=== PATIENT | female | born 1960 | race Caucasian/White ===

== ENCOUNTER → 2022-06-25 07:52 | Outpatient (BNVA) | payer BC, SELFPAY | PROVIDERS: Visit Provider Student in an Organized Health Care Education/Training Program | DX: Z13.89 Encounter for screening for other disorder (principal) ==

== ENCOUNTER 2022-07-24 09:17 | Outpatient (REF) | payer BC, SELFPAY ==
--- NOTE | ~2022-07-24 | XR_ITS ---
EXAMINATION: XR CERVICAL SPINE XR THORACIC SPINE XR LUMBAR SPINE XR SACROILIAC JOINTS CLINICAL INFORMATION: Ankylosing spondylitis. COMPARISON: None TECHNIQUE: 5 views of the cervical spine. AP and lateral views of the thoracic spine. 5 views of the lumbar spine. 3 views of the sacroiliac joints. FINDINGS: Cervical spine: There is osseous fusion of the facet joints spanning C2-C6 with severe facet arthrosis and slight anterolisthesis at C6-C7. Slight anterolisthesis of C4-C5. Partial fusion of the C5-C6 vertebral bodies posteriorly. No acute osseous abnormality. No prevertebral soft tissue swelling. No significant neural foraminal narrowing on the oblique views. Thoracic spine: Mild to moderate multilevel degenerative disc disease with mild dextroconvex scoliosis. No definite osseous bridging. No acute abnormality demonstrated. Lumbar spine: Normal alignment and lumbar lordosis with no fracture. Mild narrowing of the L5-S1 disc space. Intervertebral disc heights are otherwise preserved. There is facet arthrosis at L4-L5 and L5-S1, and on the right at L3-L4. No definite osseous bridging. Sacroiliac joints: Mild sclerosis along the sacroiliac joints with no definite erosions or ankylosis. CT may be able to detect spicules of bridging bone not apparent radiographically. XR/XR thoracic spine 3V IMPRESSION: Cervical Spine: Osseous fusion of the facet joints from C2 through C6 with slight anterolisthesis at C4-C5 and C6-C7. Partial fusion of the C5-C6 vertebral bodies posteriorly. No acute osseous abnormality. Thoracic Spine: Mild to moderate multilevel degenerative disc disease with no definite osseous bridging. Lumbar Spine: Mild L5-S1 disc space narrowing and lower lumbar facet arthrosis. No definite osseous bridging. Sacroiliac Joints: Mild sclerosis along the sacroiliac joints without definite erosions or ankylosis.
--- NOTE | ~2022-07-24 | XR_ITS ---
EXAMINATION: XR HAND/WRIST, BILATERAL XR ANKLE, BILATERAL XR FOOT, BILATERAL CLINICAL INFORMATION: Ankylosing spondylitis. COMPARISON: None. TECHNIQUE: 4 views of each hand/wrist. 3 views of each ankle. 3 views of each foot. FINDINGS: Right Hand/Wrist: No periarticular osteopenia or erosions. No suspicious soft tissue calcifications. Mild triscaphoid osteoarthritis. No acute osseous abnormality. Left Hand/Wrist: No periarticular osteopenia or erosions. No suspicious soft tissue calcifications. Ulnar-positive variance with a degenerative cyst of the ulnar styloid which may be due to chronic abutment. Moderate osteoarthritis of the triscaphoid articulation. No acute osseous abnormality. Right Ankle and Foot: The ankle mortise is preserved. Mild talocrural osteoarthritis. There is a large heel spur and a small posterior calcaneal enthesophyte. Mild joint space narrowing and degenerative sclerosis of the midfoot, particularly the calcaneocuboid joint as well as the junction of the lateral cuneiform and cuboid. Probable erosion at the medial aspect of the 2nd distal interphalangeal joint and fusion of the 3rd DIP joint. Left Ankle and Foot: The ankle mortise is preserved. Mild talocrural osteoarthritis. There is a small heel spur and a small posterior calcaneal enthesophyte. Narrowing of the talonavicular joint. Moderate arthrosis of the 1st interphalangeal joint with probable chronic erosion at the lateral aspect of the proximal phalanx. Possible chronic erosion at the lateral aspect of the 5th PIP joint. No acute abnormality. XR/XR ankle RT min 3V IMPRESSION: Degenerative findings of the hands/wrists as described without evidence of an active inflammatory arthropathy. Possible active erosion of the right 2nd DIP joint and fusion of the 3rd DIP joint. Possible chronic erosions of the left 1st interphalangeal joint and 5th PIP joint. No other evidence to suggest an active inflammatory arthropathy. Degenerative findings as described.
--- NOTE | ~2022-07-24 | XR_ITS ---
EXAMINATION: XR HAND/WRIST, BILATERAL XR ANKLE, BILATERAL XR FOOT, BILATERAL CLINICAL INFORMATION: Ankylosing spondylitis. COMPARISON: None. TECHNIQUE: 4 views of each hand/wrist. 3 views of each ankle. 3 views of each foot. FINDINGS: Right Hand/Wrist: No periarticular osteopenia or erosions. No suspicious soft tissue calcifications. Mild triscaphoid osteoarthritis. No acute osseous abnormality. Left Hand/Wrist: No periarticular osteopenia or erosions. No suspicious soft tissue calcifications. Ulnar-positive variance with a degenerative cyst of the ulnar styloid which may be due to chronic abutment. Moderate osteoarthritis of the triscaphoid articulation. No acute osseous abnormality. Right Ankle and Foot: The ankle mortise is preserved. Mild talocrural osteoarthritis. There is a large heel spur and a small posterior calcaneal enthesophyte. Mild joint space narrowing and degenerative sclerosis of the midfoot, particularly the calcaneocuboid joint as well as the junction of the lateral cuneiform and cuboid. Probable erosion at the medial aspect of the 2nd distal interphalangeal joint and fusion of the 3rd DIP joint. Left Ankle and Foot: The ankle mortise is preserved. Mild talocrural osteoarthritis. There is a small heel spur and a small posterior calcaneal enthesophyte. Narrowing of the talonavicular joint. Moderate arthrosis of the 1st interphalangeal joint with probable chronic erosion at the lateral aspect of the proximal phalanx. Possible chronic erosion at the lateral aspect of the 5th PIP joint. No acute abnormality. XR/XR ankle LT min 3V IMPRESSION: Degenerative findings of the hands/wrists as described without evidence of an active inflammatory arthropathy. Possible active erosion of the right 2nd DIP joint and fusion of the 3rd DIP joint. Possible chronic erosions of the left 1st interphalangeal joint and 5th PIP joint. No other evidence to suggest an active inflammatory arthropathy. Degenerative findings as described.
--- NOTE | ~2022-07-24 | XR_ITS ---
EXAMINATION: XR CERVICAL SPINE XR THORACIC SPINE XR LUMBAR SPINE XR SACROILIAC JOINTS CLINICAL INFORMATION: Ankylosing spondylitis. COMPARISON: None TECHNIQUE: 5 views of the cervical spine. AP and lateral views of the thoracic spine. 5 views of the lumbar spine. 3 views of the sacroiliac joints. FINDINGS: Cervical spine: There is osseous fusion of the facet joints spanning C2-C6 with severe facet arthrosis and slight anterolisthesis at C6-C7. Slight anterolisthesis of C4-C5. Partial fusion of the C5-C6 vertebral bodies posteriorly. No acute osseous abnormality. No prevertebral soft tissue swelling. No significant neural foraminal narrowing on the oblique views. Thoracic spine: Mild to moderate multilevel degenerative disc disease with mild dextroconvex scoliosis. No definite osseous bridging. No acute abnormality demonstrated. Lumbar spine: Normal alignment and lumbar lordosis with no fracture. Mild narrowing of the L5-S1 disc space. Intervertebral disc heights are otherwise preserved. There is facet arthrosis at L4-L5 and L5-S1, and on the right at L3-L4. No definite osseous bridging. Sacroiliac joints: Mild sclerosis along the sacroiliac joints with no definite erosions or ankylosis. CT may be able to detect spicules of bridging bone not apparent radiographically. XR/XR lumbar spine 4V min IMPRESSION: Cervical Spine: Osseous fusion of the facet joints from C2 through C6 with slight anterolisthesis at C4-C5 and C6-C7. Partial fusion of the C5-C6 vertebral bodies posteriorly. No acute osseous abnormality. Thoracic Spine: Mild to moderate multilevel degenerative disc disease with no definite osseous bridging. Lumbar Spine: Mild L5-S1 disc space narrowing and lower lumbar facet arthrosis. No definite osseous bridging. Sacroiliac Joints: Mild sclerosis along the sacroiliac joints without definite erosions or ankylosis.
--- NOTE | ~2022-07-24 | XR_ITS ---
EXAMINATION: XR CERVICAL SPINE XR THORACIC SPINE XR LUMBAR SPINE XR SACROILIAC JOINTS CLINICAL INFORMATION: Ankylosing spondylitis. COMPARISON: None TECHNIQUE: 5 views of the cervical spine. AP and lateral views of the thoracic spine. 5 views of the lumbar spine. 3 views of the sacroiliac joints. FINDINGS: Cervical spine: There is osseous fusion of the facet joints spanning C2-C6 with severe facet arthrosis and slight anterolisthesis at C6-C7. Slight anterolisthesis of C4-C5. Partial fusion of the C5-C6 vertebral bodies posteriorly. No acute osseous abnormality. No prevertebral soft tissue swelling. No significant neural foraminal narrowing on the oblique views. Thoracic spine: Mild to moderate multilevel degenerative disc disease with mild dextroconvex scoliosis. No definite osseous bridging. No acute abnormality demonstrated. Lumbar spine: Normal alignment and lumbar lordosis with no fracture. Mild narrowing of the L5-S1 disc space. Intervertebral disc heights are otherwise preserved. There is facet arthrosis at L4-L5 and L5-S1, and on the right at L3-L4. No definite osseous bridging. Sacroiliac joints: Mild sclerosis along the sacroiliac joints with no definite erosions or ankylosis. CT may be able to detect spicules of bridging bone not apparent radiographically. XR/XR sacroiliac joint min 3V IMPRESSION: Cervical Spine: Osseous fusion of the facet joints from C2 through C6 with slight anterolisthesis at C4-C5 and C6-C7. Partial fusion of the C5-C6 vertebral bodies posteriorly. No acute osseous abnormality. Thoracic Spine: Mild to moderate multilevel degenerative disc disease with no definite osseous bridging. Lumbar Spine: Mild L5-S1 disc space narrowing and lower lumbar facet arthrosis. No definite osseous bridging. Sacroiliac Joints: Mild sclerosis along the sacroiliac joints without definite erosions or ankylosis.
--- NOTE | ~2022-07-24 | XR_ITS ---
EXAMINATION: XR CERVICAL SPINE XR THORACIC SPINE XR LUMBAR SPINE XR SACROILIAC JOINTS CLINICAL INFORMATION: Ankylosing spondylitis. COMPARISON: None TECHNIQUE: 5 views of the cervical spine. AP and lateral views of the thoracic spine. 5 views of the lumbar spine. 3 views of the sacroiliac joints. FINDINGS: Cervical spine: There is osseous fusion of the facet joints spanning C2-C6 with severe facet arthrosis and slight anterolisthesis at C6-C7. Slight anterolisthesis of C4-C5. Partial fusion of the C5-C6 vertebral bodies posteriorly. No acute osseous abnormality. No prevertebral soft tissue swelling. No significant neural foraminal narrowing on the oblique views. Thoracic spine: Mild to moderate multilevel degenerative disc disease with mild dextroconvex scoliosis. No definite osseous bridging. No acute abnormality demonstrated. Lumbar spine: Normal alignment and lumbar lordosis with no fracture. Mild narrowing of the L5-S1 disc space. Intervertebral disc heights are otherwise preserved. There is facet arthrosis at L4-L5 and L5-S1, and on the right at L3-L4. No definite osseous bridging. Sacroiliac joints: Mild sclerosis along the sacroiliac joints with no definite erosions or ankylosis. CT may be able to detect spicules of bridging bone not apparent radiographically. XR/XR cervical spine min 6V IMPRESSION: Cervical Spine: Osseous fusion of the facet joints from C2 through C6 with slight anterolisthesis at C4-C5 and C6-C7. Partial fusion of the C5-C6 vertebral bodies posteriorly. No acute osseous abnormality. Thoracic Spine: Mild to moderate multilevel degenerative disc disease with no definite osseous bridging. Lumbar Spine: Mild L5-S1 disc space narrowing and lower lumbar facet arthrosis. No definite osseous bridging. Sacroiliac Joints: Mild sclerosis along the sacroiliac joints without definite erosions or ankylosis.
--- NOTE | ~2022-07-24 | XR_ITS ---
EXAMINATION: XR HAND/WRIST, BILATERAL XR ANKLE, BILATERAL XR FOOT, BILATERAL CLINICAL INFORMATION: Ankylosing spondylitis. COMPARISON: None. TECHNIQUE: 4 views of each hand/wrist. 3 views of each ankle. 3 views of each foot. FINDINGS: Right Hand/Wrist: No periarticular osteopenia or erosions. No suspicious soft tissue calcifications. Mild triscaphoid osteoarthritis. No acute osseous abnormality. Left Hand/Wrist: No periarticular osteopenia or erosions. No suspicious soft tissue calcifications. Ulnar-positive variance with a degenerative cyst of the ulnar styloid which may be due to chronic abutment. Moderate osteoarthritis of the triscaphoid articulation. No acute osseous abnormality. Right Ankle and Foot: The ankle mortise is preserved. Mild talocrural osteoarthritis. There is a large heel spur and a small posterior calcaneal enthesophyte. Mild joint space narrowing and degenerative sclerosis of the midfoot, particularly the calcaneocuboid joint as well as the junction of the lateral cuneiform and cuboid. Probable erosion at the medial aspect of the 2nd distal interphalangeal joint and fusion of the 3rd DIP joint. Left Ankle and Foot: The ankle mortise is preserved. Mild talocrural osteoarthritis. There is a small heel spur and a small posterior calcaneal enthesophyte. Narrowing of the talonavicular joint. Moderate arthrosis of the 1st interphalangeal joint with probable chronic erosion at the lateral aspect of the proximal phalanx. Possible chronic erosion at the lateral aspect of the 5th PIP joint. No acute abnormality. XR/XR hand wrist LT IMPRESSION: Degenerative findings of the hands/wrists as described without evidence of an active inflammatory arthropathy. Possible active erosion of the right 2nd DIP joint and fusion of the 3rd DIP joint. Possible chronic erosions of the left 1st interphalangeal joint and 5th PIP joint. No other evidence to suggest an active inflammatory arthropathy. Degenerative findings as described.
--- NOTE | ~2022-07-24 | XR_ITS ---
EXAMINATION: XR HAND/WRIST, BILATERAL XR ANKLE, BILATERAL XR FOOT, BILATERAL CLINICAL INFORMATION: Ankylosing spondylitis. COMPARISON: None. TECHNIQUE: 4 views of each hand/wrist. 3 views of each ankle. 3 views of each foot. FINDINGS: Right Hand/Wrist: No periarticular osteopenia or erosions. No suspicious soft tissue calcifications. Mild triscaphoid osteoarthritis. No acute osseous abnormality. Left Hand/Wrist: No periarticular osteopenia or erosions. No suspicious soft tissue calcifications. Ulnar-positive variance with a degenerative cyst of the ulnar styloid which may be due to chronic abutment. Moderate osteoarthritis of the triscaphoid articulation. No acute osseous abnormality. Right Ankle and Foot: The ankle mortise is preserved. Mild talocrural osteoarthritis. There is a large heel spur and a small posterior calcaneal enthesophyte. Mild joint space narrowing and degenerative sclerosis of the midfoot, particularly the calcaneocuboid joint as well as the junction of the lateral cuneiform and cuboid. Probable erosion at the medial aspect of the 2nd distal interphalangeal joint and fusion of the 3rd DIP joint. Left Ankle and Foot: The ankle mortise is preserved. Mild talocrural osteoarthritis. There is a small heel spur and a small posterior calcaneal enthesophyte. Narrowing of the talonavicular joint. Moderate arthrosis of the 1st interphalangeal joint with probable chronic erosion at the lateral aspect of the proximal phalanx. Possible chronic erosion at the lateral aspect of the 5th PIP joint. No acute abnormality. XR/XR hand wrist RT IMPRESSION: Degenerative findings of the hands/wrists as described without evidence of an active inflammatory arthropathy. Possible active erosion of the right 2nd DIP joint and fusion of the 3rd DIP joint. Possible chronic erosions of the left 1st interphalangeal joint and 5th PIP joint. No other evidence to suggest an active inflammatory arthropathy. Degenerative findings as described.
[2022-07-24 09:43] LABS: MANUAL DIFF FLAG NO
[2022-07-24 10:37] LABS: Basophils Absolute Auto 0.1 X10*3/uL (0.0-0.2); Basophils Percent Auto 0.7 % (0-2); Eosinophils Percent Auto 0.4 % (0-4); Hematocrit 38.8 % (37.0-47.0); Hemoglobin 12.7 g/dl (12.0-16.0); Imm Gran Abs Auto 0.02 X10*3/uL (0.00-0.03); Imm Gran Pct Auto 0.3 % (0.0-0.4); Lymphocytes Absolute Auto 1.3 X10*3/uL (1.2-4.9); Lymphocytes Percent Auto 17.7 % (20-40); Mean Corpuscular HGB Conc 32.7 g/dl (31.0-35.0); Mean Corpuscular Hemoglobin 28.9 pg (27.0-33.0); Mean Corpuscular Volume 88.4 fL (80.0-98.0); Mean Platelet Volume 9.1 fL (9.4-12.3); Monocytes Absolute Auto 0.4 X10*3/uL (0.1-1.2); Neutrophils Absolute Auto 5.5 x10*3/uL (2.0-8.3); Neutrophils Percent Auto 74.9 % (45-73); Platelet Count 463 X10*3/uL (160-400); Red Blood Count 4.39 X10*6/uL (4.20-5.50); White Blood Count 7.3 X10*3/uL (4.8-10.8)
[2022-07-24 11:13] LABS: Alanine Aminotransferase 12 U/L (0-31); Alkaline Phosphatase 57 U/L (39-117); Anion Gap 15 (12-20); Aspartate Amino Transferase 16 U/L (5-31); Bilirubin Total 0.4 mg/dL (0.0-1.0); Blood Urea Nitrogen 18 mg/dL (9-16); C Reactive Protein 3.29 mg/dL (< or = 0.50); Calcium 9.6 mg/dL (8.4-10.2); Carbon Dioxide 28 mmol/L (22-29); Chloride 103 mmol/L (96-108); Estimated Glomerular Filt Rate > 60; Glucose Random 87 mg/dL (60-115); Potassium 4.6 mmol/L (3.3-5.1); Rheumatoid Factor < 13.0 IU/mL (<15.0); Sodium 141 mmol/L (135-145); Total Protein 7.7 g/dL (6.5-8.0); Uric Acid 3.8 mg/dL (2.4-5.7)
[2022-07-24 11:21] LABS: Erythrocyte Sedimentation Rate 81 MM/HR (0-20)
[2022-07-26 04:26] LABS: HBc Num1 0.12 S/CO (0.00-0.79); HBsAGNum1 0.21 S/CO (0.00-0.99); Hepatitis A Antibody IgM 0.17 Index (0-0.79); Hepatitis B Core Antibody Nonreactive (Nonreactive); Hepatitis B Surface Antigen Negative (Negative); ~HepC Num1 0.14 S/CO (0.00-0.79); ~Hepatitis A Antibody IgM Nonreactive (Nonreactive); ~Hepatitis B Surface Antibody NONREACTIVE (Nonreactive); ~Hepatitis C Antibody Nonreactive (Nonreactive)
[2022-07-27 12:58] LABS: IgA 258 mg/dL (70-320); IgG 1730 mg/dL (600-1540); IgM 255 mg/dL (50-300)
[2022-07-27 14:23] LABS: Cyclic Citrullinated Peptide <16 UNITS
[2022-08-02 15:37] LABS: HLA B27 Positive (Negative)
== END 2022-07-24 09:18 | disposition home or self-care (01) ==
LOC: HO.LAB 09:17
PROVIDERS: Visit Provider Student in an Organized Health Care Education/Training Program
DX: Z11.59 Encounter for screening for other viral diseases (principal); M45.9 Ankylosing spondylitis of unspecified sites in spine; M25.571 Pain in right ankle and joints of right foot; M25.572 Pain in left ankle and joints of left foot
CPT/HCPCS: 36415; 72052; 72072; 72110; 72202; 73110; 73130; 73610; 73630; 80053; 82784; 84550; 85025; 85652; 86140; 86200; 86334; 86431; 86704; 86706; 86709; 86803; 86812; 87340

== ENCOUNTER 2022-08-27 07:23 | Outpatient (REF) | payer BC, SELFPAY ==
[2022-08-29 23:54] LABS: TS Negative Control Passed; TS Panel A 0; TS Panel B 0; TS Positive Control Passed; TSpotTB Negative (Negative)
== END 2022-08-27 07:24 | disposition home or self-care (01) ==
LOC: HO.LAB 07:23
PROVIDERS: Visit Provider Student in an Organized Health Care Education/Training Program
DX: Z11.7 Encounter for testing for latent tuberculosis infection (principal); M45.0 Ankylosing spondylitis of multiple sites in spine
CPT/HCPCS: 36415; 86481

== ENCOUNTER 2023-03-25 07:50 | Outpatient (AMB) | payer BC, SELFPAY ==
--- NOTE | 2023-03-25 08:00 | A.OFFVIS_ITS ---
Intake Vital Signs 03/25/23 08:02 Height 5 ft 7 in Weight 134 lb 0.657 oz BMI 21.0 BP 106/64 Blood Pressure Location Rt brachial Position Sitting Pulse 76 Pulse Source Pulse Oximeter Temp 97.9 F Temp Source Skin Pulse Oximetry (%) 97 Intake Visit Reasons: Intake Note: Pt presents today for follow up and lab result. Was started on Humira. 5 doses so far tolerating well.. no worse as far as joint pain. Toes are better Network Support Administrator Required: No Accompanied by: Self / Same As Patient Allergies clindamycin Allergy (Intermediate, Verified 03/25/23 08:06) Rash demeclocycline [From Declomycin] Allergy (Intermediate, Verified 03/25/23 08:06) RASH Medication List - Last Reconciled 03/25/23 by Kareem Blanchard MD adalimumab (Humira(CF) Pen) inject one - 40 mg/0.4 mL pen every 2 weeks subcut calcium-vitamin D3-vitamin K 650 mg-12.5 mcg-40 mcg (Viactiv) 1 tab PO BID HPI HPI Comments History of Present Illness Details 62-year-old female with HLA B27 positive ankylosing spondylitis returns for follow-up. she finally started the Humira through [employer]. Tolerating it well.She received 5 doses so far. Feeling much better overall. Her bilateral toe pain is resolved. Her neck stiffness is about the same. She no longer takes Aleve. Initial history: This is a 61-year-old female who is referred for evaluation of ankylosing spondylitis. Patient states that about 18 years ago she started having lower back pain and stiffness this was shortly followed by 3-4 episodes of iritis. Per patient the iritis would alternate between her right and left eye. She never had bilateral iritis. The iritis episodes would resolve with steroid eyedrops in about 2 weeks. She has not had any recurrent iritis for 18 years or so. For the past 18 years patient has taken Aleve 440 mg Twice daily. She states that her lower back pain has resolved however she has had slowly progressive neck stiffness for the last few years. She has neck pain with movement. Which she does not take the Aleve consistently she would have worsening pain and stiffness. Over the last few years patient has been having bilateral feet pain and stiffness worse on the right. The foot pain improves after walking. Patient is generally active she takes care of her daughter's children as her daughter has to go to work. She denies any history of psoriasis, no history of suggestive of IBD. No known family history of autoimmune disease. Patient was last evaluated by visitor information assistant in 2019. [facility] Medical History (Updated 03/25/23 @ 08:26 by Kareem Blanchard MD) Chest wall pain Chronic neck pain Osteopenia Iritis G6PD deficiency Polyarthritis ANNA positive Surgical History Hx of removal of cyst Family History Mother PMR (polymyalgia rheumatica) Father Arthritis Maternal Grandmother Arthritis Social History Household Members: Spouse Alcohol intake: never Patient Tobacco Use Status: Never used Tobacco Current occupational status: previously employed Current occupation: used to be a teacher's aid Review of Systems Const All systems reviewed & are unremarkable except as noted in HPI and below Musc Denies arthralgias Physical Exam Vital Signs: Last Vital Signs Temp 97.9 F 03/25/23 08:02 Pulse 76 03/25/23 08:02 BP 106/64 03/25/23 08:02 Pulse Ox 97 03/25/23 08:02 BMI result Body Mass Index 21.0 Const General: cooperative, healthy appearing, comfortable and no acute distress Nutritional Appearance: average body habitus Orientation/consciousness: patient oriented x3 Resp Effort & Inspection: normal respiratory effort and able to speak in complete sentences Cardio Rate: regular rate Rhythm: regular rhythm GI Inspection: No distended Palpation (GI): Soft to palpation and nontender Back/Spine/Pelvis Other: limited range of motion of her neck limited flexion, extension, left and right rotation and left and right lateral flexion Toribio test 10-14 cm Skin General skin exam: no rashes or lesions noted Neuro General: patient oriented x3 Extrem Other: Minimal osteoarthritic changes of both hands with no synovitis Normal nailfold capillaroscopy No nail pitting No MTP joint tenderness bilaterally Negative MTP squeeze test bilateral Deformities of her right foot toes No Achillis tendon swelling or tenderness no ankle swelling or tenderness Negative Alexys's test Negative straight leg raise test Results Reviewed Results Reviewed: Labs 10/2021 CMP unremarkable HbA1c 5.6% X-ray cervical spine 12/2018 Impression: ankylosis from C2-C6 at the posterior elements. Minor disc height loss at C5-C6. Trace scoliosis Labs 12/2018? G6PD 10.9 (8.8-13.4) SPEP showed polyclonal hypergammaglobulinemia CRP 13.4 (<4.0) CPK 47 C3 187 (81-157) C4 18 (12-39) ANNA 1-320 homogeneous SSA/SSB/Salas/CLINICAL EXERCISE PHYSIOLOGIST/dsDNA negative Feet x-rays from 06/2018 Impression:? Mild diffuse osteopenia with mild spurring in the midfoot and hindfoot.? No erosive arthropathy or subluxation.? Prominent calculi in [place] consistent with plantar fasciitis on the right with minor plantar calcaneal spurring on the left Bilateral hand x-rays from 06/2018? Impression:? No osteopenia, erosive changes, subluxation or significant degenerative changes DEXA 07/2018? Lumbar spine T-score -2.1 Left hip T-score-1.5? Femoral neck T-score -2.2 Assessment & Plan Assessment & Plan (1) Ankylosing spondylitis: Comment: + HLA b27 started in 2002 low back & neck stiffness, MTP involvement, iritis no recurrence of iritis since 2002 NSAIDs all through, DC 12/2022 when Humira was started Humira 01/2023 effective Code(s): M45.9 - Ankylosing spondylitis of unspecified sites in spine Qualifiers: Ankylosing spondylitis location: multiple sites in spine Qualified Code(s): M45.0 - Ankylosing spondylitis of multiple sites in spine Plan: This is a 62-year-old female with HLA B27 positive ankylosing spondylitis, who presents for follow-up. started on Humira 40 mg every other week 10 weeks ago with significant improvement. There is no MTP tenderness on exam. Patient completely discontinued NSAIDs. Check inflammatory markers today Infectious screening: hepatitis panel and T spot -20 23 labs before next visit in 4 months (2) High risk medication use: Code(s): Z79.899 - Other display trimmer (current) drug therapy Plan: Discussed risk of infection with Humira. Advised patient to hold the Humira as soon as she feels any signs of infection and contact us. (3) Immunization counseling: Code(s): Z71.85 - Encounter for immunization safety counseling Plan: discussed ACR vaccination guidelines for all those with autoimmune rheumatic disease on immune suppressants. Patient already received the flu shot for this year. Advised patient to get the new COVID booster. No need to hold Humira advised patient that respiratory infections including COVID are on the rise, to maintain social distancing and wear a mask when appropriate. Plan I spent 27 minutes reviewing patient's chart, evaluating patient, ordering diagnostic workup, counseling patient and documenting in the chart Orders: Orders C Reactive Protein Today M45.9 - Ankylosing spondylitis of unspecified sites in spine Erythrocyte Sedimentation Rate Today M45.9 - Ankylosing spondylitis of unspecified sites in spine Complete Blood Count Auto Diff 4 Months M45.9 - Ankylosing spondylitis of unspecified sites in spine C Reactive Protein 4 Months M45.9 - Ankylosing spondylitis of unspecified sites in spine Erythrocyte Sedimentation Rate 4 Months M45.9 - Ankylosing spondylitis of unspecified sites in spine Complete Blood Count Auto Diff Today M45.9 - Ankylosing spondylitis of unspecified sites in spine Comprehensive Met. Panel Today M45.9 - Ankylosing spondylitis of unspecified sites in spine Comprehensive Met. Panel 4 Months M45.9 - Ankylosing spondylitis of unspecified sites in spine Coding Level of Care Code Est Pt Level 4 (67836) Diagnoses Ankylosing spondylitis of multiple sites in spine M45.0 Ankylosing spondylitis location: multiple sites in spine High risk medication use Z79.899 Immunization counseling Z71.85
[2023-03-25 08:02] VITALS: BP 106/64; PULSE 76; TEMP 36.6; O2SAT 97; BMI 21.0
== END 2023-03-25 08:22 | disposition home or self-care (01) ==
PROVIDERS: Visit Provider Student in an Organized Health Care Education/Training Program
DX: M45.0 Ankylosing spondylitis of multiple sites in spine (principal); Z79.899 Other long term (current) drug therapy; Z71.85 Encounter for immunization safety counseling
CPT/HCPCS: 99214

== ENCOUNTER → 2023-03-25 07:50 | Outpatient (BNVA) | payer BC, SELFPAY | PROVIDERS: Visit Provider Student in an Organized Health Care Education/Training Program ==

== ENCOUNTER 2023-03-25 08:28 | Outpatient (REF) | payer BC, SELFPAY ==
[2023-03-25 11:45] LABS: MANUAL DIFF FLAG NO
[2023-03-25 11:56] LABS: Basophils Percent Auto 0.9 % (0-2); Eosinophils Percent Auto 0.2 % (0-4); Hematocrit 41.5 % (37.0-47.0); Hemoglobin 13.8 g/dl (12.0-16.0); Imm Gran Abs Auto 0.01 X10*3/uL (0.00-0.03); Imm Gran Pct Auto 0.2 % (0.0-0.4); Lymphocytes Absolute Auto 1.3 X10*3/uL (1.2-4.9); Mean Corpuscular HGB Conc 33.3 g/dl (31.0-35.0); Mean Corpuscular Volume 90.2 fL (80.0-98.0); Mean Platelet Volume 10.3 fL (9.4-12.3); Monocytes Absolute Auto 0.3 X10*3/uL (0.1-1.2); Monocytes Percent Auto 7.8 % (2-11); Neutrophils Absolute Auto 2.5 x10*3/uL (2.0-8.3); Neutrophils Percent Auto 59.9 % (45-73); Platelet Count 214 X10*3/uL (160-400); White Blood Count 4.2 X10*3/uL (4.8-10.8)
[2023-03-25 12:18] LABS: Alanine Aminotransferase 29 U/L (0-31); Albumin Level 4.4 g/dL (3.5-5.0); Alkaline Phosphatase 57 U/L (39-117); Anion Gap 15 (12-20); Aspartate Amino Transferase 29 U/L (5-31); Bilirubin Total 0.5 mg/dL (0.0-1.0); Blood Urea Nitrogen 18 mg/dL (9-16); C Reactive Protein 0.11 mg/dL (< or = 0.50); Calcium 10.2 mg/dL (8.4-10.2); Carbon Dioxide 26 mmol/L (22-29); Chloride 105 mmol/L (96-108); Estimated Glomerular Filt Rate > 60; Glucose Random 86 mg/dL (60-115); Potassium 3.7 mmol/L (3.3-5.1); Sodium 142 mmol/L (135-145); Total Protein 7.8 g/dL (6.5-8.0)
[2023-03-25 12:42] LABS: Erythrocyte Sedimentation Rate 12 MM/HR (0-20)
== END 2023-03-25 08:29 | disposition home or self-care (01) ==
LOC: HO.10HDL 08:28
PROVIDERS: Visit Provider Student in an Organized Health Care Education/Training Program
DX: M45.9 Ankylosing spondylitis of unspecified sites in spine (principal)
CPT/HCPCS: 36415; 80053; 85025; 85652; 86140

== ENCOUNTER 2023-08-10 07:48 | Outpatient (AMB) | payer BC, SELFPAY ==
--- NOTE | 2023-08-10 07:54 | A.OFFVIS_ITS ---
Intake Vital Signs 08/10/23 07:55 Height 5 ft 7 in Weight 132 lb 4.438 oz BMI 20.7 BP 114/68 Blood Pressure Location Rt brachial Position Sitting Pulse 57 Pulse Source Pulse Oximeter Temp 97.2 F Temp Source Skin Pulse Oximetry (%) 94 Oxygen Delivery Method Room Air Intake Visit Reasons: Intake Note: Patient last seen 03/25/23 presents today for follow up and test results. Patient Access Director Required: No Accompanied by: Self / Same As Patient Allergies clindamycin Allergy (Intermediate, Verified 08/10/23 07:58) Rash demeclocycline [From Declomycin] Allergy (Intermediate, Verified 08/10/23 07:58) RASH Medication List - Last Reconciled 08/10/23 by Kareem Blanchard MD calcium-vitamin D3-vitamin K 650 mg-12.5 mcg-40 mcg (Viactiv) 1 tab PO BID Humira(CF) Pen (adalimumab) 40 mg (0.4 mL) subcut Q2W NS HPI HPI Comments History of Present Illness Details 63-year-old female with HLA B27 positive ankylosing spondylitis returns for follow-up. She remains on Humira 40 mg every other week. Doing well overall. She no longer has any pain in the feet. Has improved stiffness of her knees. Doing well overall. Three weeks ago she was sick with a flu-like illness, she had a fever for 1 day followed by rashes throat and cough for a few days. She has recovered well. She states that her mother had osteoporosis. Initial history: This is a 61-year-old female who is referred for evaluation of ankylosing spondylitis. Patient states that about 18 years ago she started having lower back pain and stiffness this was shortly followed by 3-4 episodes of iritis. Per patient the iritis would alternate between her right and left eye. She never had bilateral iritis. The iritis episodes would resolve with steroid eyedrops in about 2 weeks. She has not had any recurrent iritis for 18 years or so. For the past 18 years patient has taken Aleve 440 mg Twice daily. She states that her lower back pain has resolved however she has had slowly progressive neck stiffness for the last few years. She has neck pain with movement. Which she does not take the Aleve consistently she would have worsening pain and stiffness. Over the last few years patient has been having bilateral feet pain and stiffness worse on the right. The foot pain improves after walking. Patient is generally active she takes care of her daughter's children as her daughter has to go to work. She denies any history of psoriasis, no history of suggestive of IBD. No known family history of autoimmune disease. Patient was last evaluated by cat cracker operator in 2019. [facility] Medical History (Updated 08/10/23 @ 08:19 by Kareem Blanchard MD) Chest wall pain Chronic neck pain Osteopenia Iritis G6PD deficiency Polyarthritis ANNA positive Surgical History Hx of removal of cyst Family History Mother PMR (polymyalgia rheumatica) Father Arthritis Maternal Grandmother Arthritis Social History Household Members: Spouse Alcohol intake: never Patient Tobacco Use Status: Never used Tobacco Current occupational status: previously employed Current occupation: used to be a teacher's aid Review of Systems Const All systems reviewed & are unremarkable except as noted in HPI and below Musc Denies arthralgias and Denies stiffness Physical Exam Vital Signs: Last Vital Signs Temp 97.2 F 08/10/23 07:55 BMI result Body Mass Index 20.7 Const General: cooperative, healthy appearing, comfortable and no acute distress Nutritional Appearance: average body habitus Orientation/consciousness: patient oriented x3 Resp Effort & Inspection: normal respiratory effort and able to speak in complete sentences Cardio Rate: regular rate Rhythm: regular rhythm GI Inspection: No distended Palpation (GI): Soft to palpation and nontender Back/Spine/Pelvis Other: limited range of motion of her neck limited flexion, extension, left and right rotation and left and right lateral flexion Toribio test 10-14 cm Skin Other: Seborrheic keratosis on back Neuro General: patient oriented x3 Extrem Other: Minimal osteoarthritic changes of both hands with no synovitis Normal nailfold capillaroscopy No nail pitting No MTP joint tenderness bilaterally Negative MTP squeeze test bilateral Deformities of her right foot toes No Achillis tendon swelling or tenderness no ankle swelling or tenderness Negative Alexys's test Negative straight leg raise test Results Reviewed Results Reviewed: Labs 10/2021 CMP unremarkable HbA1c 5.6% X-ray cervical spine 12/2018 Impression: ankylosis from C2-C6 at the posterior elements. Minor disc height loss at C5-C6. Trace scoliosis Labs 12/2018? G6PD 10.9 (8.8-13.4) SPEP showed polyclonal hypergammaglobulinemia CRP 13.4 (<4.0) CPK 47 C3 187 (81-157) C4 18 (12-39) ANNA 1-320 homogeneous SSA/SSB/Salas/AGENT BASED MODELER/dsDNA negative Feet x-rays from 06/2018 Impression:? Mild diffuse osteopenia with mild spurring in the midfoot and hindfoot.? No erosive arthropathy or subluxation.? Prominent calculi in Spurling consistent with plantar fasciitis on the right with minor plantar calcaneal spurring on the left Bilateral hand x-rays from 06/2018? Impression:? No osteopenia, erosive changes, subluxation or significant degenerative changes DEXA 07/2018? Lumbar spine T-score -2.1 Left hip T-score-1.5? Femoral neck T-score -2.2 Assessment & Plan Assessment & Plan (1) Ankylosing spondylitis: Comment: + HLA b27 started in 2002 low back & neck stiffness, MTP involvement, iritis no recurrence of iritis since 2002 NSAIDs all through, [place] 12/2022 when Humira was started Humira 01/2023 effective Code(s): M45.9 - Ankylosing spondylitis of unspecified sites in spine Qualifiers: Ankylosing spondylitis location: multiple sites in spine Qualified Code(s): M45.0 - Ankylosing spondylitis of multiple sites in spine Plan: This is a 63-year-old female with HLA B27 positive ankylosing spondylitis, who presents for follow-up. On Humira 40 mg every other week. Doing much better overall since Humira was started. No complaints today. Her inflammatory markers are elevated, this can be due to her recent upper respiratory tract infection. Infectious screening: hepatitis panel and T spot -20 23 labs before next visit in 6 months (2) High risk medication use: Code(s): Z79.899 - Other skilled nursing (current) drug therapy Plan: Discussed risk of infection with Humira. Advised patient to hold the Humira as soon as she feels any signs of infection and contact us. (3) Osteopenia: Code(s): M85.80 - Other specified disorders of bone density and structure, unspecified site Qualifiers: Osteopenia location: multiple sites Qualified Code(s): M85.89 - Other specified disorders of bone density and structure, multiple sites Plan: Osteopenia in 2019. Patient remains on calcium and vitamin-D. No history of fractures or falls. Will check a repeat bone density scan screening for osteoporosis Plan I spent 27 minutes reviewing patient's chart, evaluating patient, ordering diagnostic workup, counseling patient and documenting in the chart Orders: Orders XR DEXA axial skeleton Today M85.80 - Other specified disorders of bone density and structure, unspecified site, N95.1 - Menopausal and female climacteric states Complete Blood Count Auto Diff 6 Months M45.9 - Ankylosing spondylitis of unspecified sites in spine, Z79.899 - Other skilled nursing (current) drug therapy Comprehensive Met. Panel 6 Months M45.9 - Ankylosing spondylitis of unspecified sites in spine, Z79.899 - Other middle or intermediate school principal (current) drug therapy C Reactive Protein 6 Months M45.9 - Ankylosing spondylitis of unspecified sites in spine, Z79.899 - Other skilled nursing (current) drug therapy Erythrocyte Sedimentation Rate 6 Months M45.9 - Ankylosing spondylitis of unspecified sites in spine, Z79.899 - Other skilled nursing (current) drug therapy Coding Level of Care Code Est Pt Level 4 (86960) Diagnoses Ankylosing spondylitis of multiple sites in spine M45.0 Ankylosing spondylitis location: multiple sites in spine High risk medication use Z79.899 Osteopenia of multiple sites M85.89 Osteopenia location: multiple sites
[2023-08-10 07:55] VITALS: BP 114/68; PULSE 57; TEMP 36.2; O2SAT 94; BMI 20.7
== END 2023-08-10 08:13 | disposition home or self-care (01) ==
PROVIDERS: Visit Provider Student in an Organized Health Care Education/Training Program
DX: M45.0 Ankylosing spondylitis of multiple sites in spine (principal); Z79.899 Other long term (current) drug therapy; M85.89 Other specified disorders of bone density and structure, multiple sites
CPT/HCPCS: 99214

== ENCOUNTER → 2023-08-10 07:48 | Outpatient (BNVA) | payer BC, SELFPAY | PROVIDERS: Visit Provider Student in an Organized Health Care Education/Training Program ==

== ENCOUNTER 2023-10-10 07:31 | Outpatient (REF) | payer BC, SELFPAY ==
[2023-10-10 07:59] LABS: MANUAL DIFF FLAG NO
[2023-10-10 08:58] LABS: Basophils Percent Auto 0.6 % (0-2); Eosinophils Percent Auto 0.4 % (0-4); Hematocrit 39.2 % (37.0-47.0); Hemoglobin 13.2 g/dl (12.0-16.0); Lymphocytes Absolute Auto 1.1 X10*3/uL (1.2-4.9); Lymphocytes Percent Auto 22.2 % (20-40); Mean Corpuscular HGB Conc 33.7 g/dl (31.0-35.0); Mean Corpuscular Hemoglobin 30.6 pg (27.0-33.0); Mean Corpuscular Volume 90.7 fL (80.0-98.0); Mean Platelet Volume 9.2 fL (9.4-12.3); Monocytes Absolute Auto 0.4 X10*3/uL (0.1-1.2); Monocytes Percent Auto 7.6 % (2-11); Neutrophils Absolute Auto 3.3 x10*3/uL (2.0-8.3); Neutrophils Percent Auto 69.2 % (45-73); Platelet Count 271 X10*3/uL (160-400); Red Blood Count 4.32 X10*6/uL (4.20-5.50); Red Cell Distribution Width 12.7 % (11.0-16.0); White Blood Count 4.7 X10*3/uL (4.8-10.8)
[2023-10-10 09:34] LABS: Erythrocyte Sedimentation Rate 39 MM/HR (0-20)
[2023-10-10 10:14] LABS: Alanine Aminotransferase 20 U/L (0-31); Alkaline Phosphatase 48 U/L (39-117); Anion Gap 12 (12-20); Aspartate Amino Transferase 20 U/L (5-31); Bilirubin Total 0.5 mg/dL (0.0-1.0); Blood Urea Nitrogen 19 mg/dL (9-16); C Reactive Protein 1.63 mg/dL (< or = 0.50); Carbon Dioxide 29 mmol/L (22-29); Chloride 102 mmol/L (96-108); Estimated Glomerular Filt Rate > 60; Glucose Random 135 mg/dL (60-115); Potassium 3.6 mmol/L (3.3-5.1); Sodium 139 mmol/L (135-145); Total Protein 7.8 g/dL (6.5-8.0)
== END 2023-10-10 07:32 | disposition home or self-care (01) ==
LOC: HO.LAB 07:31
PROVIDERS: PCP Nurse Practitioner Family; Visit Provider Student in an Organized Health Care Education/Training Program
DX: M45.0 Ankylosing spondylitis of multiple sites in spine (principal)
CPT/HCPCS: 36415; 80053; 80145; 83520; 85025; 85652; 86140

== ENCOUNTER 2023-10-10 08:06 | Outpatient (AMB) | payer BC, SELFPAY ==
--- NOTE | 2023-10-10 08:11 | A.OFFVIS_ITS ---
Vital Signs 10/10/23 08:12 Height 5 ft 7 in Weight 130 lb 15.273 oz BMI 20.5 BP 118/74 Blood Pressure Location Rt brachial Position Sitting Pulse 81 Pulse Source Pulse Oximeter Pulse Oximetry (%) 97 Oxygen Delivery Method Room Air Intake Visit Reasons: increased pain/Humira dose change? Intake Note: Pt last seen 08/10/23 presents today with complaints of increased pain on the back of her head extending down to neck, arms, legs. Pain seems to fluctuate, denies any swelling. [facility] Director Required: No Accompanied by: Self / Same As Patient Allergies clindamycin Allergy (Intermediate, Verified 10/10/23 08:15) Rash demeclocycline [From Declomycin] Allergy (Intermediate, Verified 10/10/23 08:15) RASH Medication List - Last Reconciled 10/10/23 by Kareem Blanchard MD calcium-vitamin D3-vitamin K 650 mg-12.5 mcg-40 mcg (Viactiv) 1 tab PO BID Humira(CF) Pen (adalimumab) 40 mg (0.4 mL) subcut Q2W NS HPI Comments Details: 63-year-old female with HLA B27 positive ankylosing spondylitis returns for follow-up. She remains on Humira 40 mg every other week. She states that over the last month he has been having flare-ups. She believes that the Humira is no longer working. She gets intermittent episodes of pain in her in her neck, that radiates up her head. She also gets generalized pain and stiffness of her legs and lower back. Difficulty getting up from a chair and difficulty going up the stairs. Intermittent pain in her wrists. The pain alternates and changes. One day she has to take an Aleve for her neck pain which did help. She feels that the Humira works 2-3 days after the injection and does not work nearly as well as it did in the past. Has not had any eye pain or blurry vision Initial history: This is a 61-year-old female who is referred for evaluation of ankylosing spondylitis. Patient states that about 18 years ago she started having lower back pain and stiffness this was shortly followed by 3-4 episodes of iritis. Per patient the iritis would alternate between her right and left eye. She never had bilateral iritis. The iritis episodes would resolve with steroid eyedrops in about 2 weeks. She has not had any recurrent iritis for 18 years or so. For the past 18 years patient has taken Aleve 440 mg Twice daily. She states that her lower back pain has resolved however she has had slowly progressive neck stiffness for the last few years. She has neck pain with movement. Which she does not take the Aleve consistently she would have worsening pain and stiffness. Over the last few years patient has been having bilateral feet pain and stiffness worse on the right. The foot pain improves after walking. Patient is generally active she takes care of her daughter's children as her daughter has to go to work. She denies any history of psoriasis, no history of suggestive of IBD. No known family history of autoimmune disease. Patient was last evaluated by aluminum sheet cutter in 2019. [facility] Medical History Chest wall pain Chronic neck pain Osteopenia Iritis G6PD deficiency Polyarthritis ANNA positive Surgical History Hx of removal of cyst Family History Mother PMR (polymyalgia rheumatica) Father Arthritis Maternal Grandmother Arthritis Social History Household Members: Spouse Alcohol intake: never Patient Tobacco Use Status: Never used Tobacco Current occupational status: previously employed Current occupation: used to be a teacher's aid Review of Systems ENT Reports neck pain Musc Reports arthralgias, Reports limited range of motion, Reports neck pain and Reports stiffness Physical Exam Vital Signs: Last Vital Signs Pulse 81 10/10/23 08:12 BP 118/74 10/10/23 08:12 Pulse Ox 97 10/10/23 08:12 Oxygen Delivery Method Room Air 10/10/23 08:12 BMI result Body Mass Index 20.5 Const General: cooperative, healthy appearing, comfortable and no acute distress Nutritional Appearance: average body habitus Orientation/consciousness: patient oriented x3 Resp Effort & Inspection: normal respiratory effort and able to speak in complete sentences Cardio Rate: regular rate Rhythm: regular rhythm GI Inspection: No distended Palpation (GI): Soft to palpation and nontender Back/Spine/Pelvis Other: limited range of motion of her neck limited flexion, extension, left and right rotation and left and right lateral flexion Toribio test 10-14 cm Negative straight leg raise test bilaterally Negative Zee test bilaterally Skin Other: Seborrheic keratosis on back Neuro General: patient oriented x3 Extrem Other: Minimal osteoarthritic changes of both hands with no synovitis Normal nailfold capillaroscopy No nail pitting Right knee swelling, warmth and pain with full flexion and extension No MTP joint tenderness bilaterally Negative MTP squeeze test bilateral Deformities of her right foot toes No Achillis tendon swelling or tenderness no ankle swelling or tenderness Results Reviewed Results Reviewed: Labs 10/2021 CMP unremarkable HbA1c 5.6% X-ray cervical spine 12/2018 Impression: ankylosis from C2-C6 at the posterior elements. Minor disc height loss at C5-C6. Trace scoliosis Labs 12/2018? G6PD 10.9 (8.8-13.4) SPEP showed polyclonal hypergammaglobulinemia CRP 13.4 (<4.0) CPK 47 C3 187 (81-157) C4 18 (12-39) ANNA 1-320 homogeneous SSA/SSB/Salas/KEY MAKER/dsDNA negative Feet x-rays from 06/2018 Impression:? Mild diffuse osteopenia with mild spurring in the midfoot and hindfoot.? No erosive arthropathy or subluxation.? Prominent calculi in Spurling consistent with plantar fasciitis on the right with minor plantar calcaneal spurring on the left Bilateral hand x-rays from 06/2018? Impression:? No osteopenia, erosive changes, subluxation or significant degenerative changes DEXA 07/2018? Lumbar spine T-score -2.1 Left hip T-score-1.5? Femoral neck T-score -2.2 Assessment & Plan Assessment & Plan (1) Ankylosing spondylitis: Comment: + HLA b27 started in 2002 low back & neck stiffness, MTP involvement, iritis no recurrence of iritis since 2002 NSAIDs all through, [place] 12/2022 when Humira was started Humira 01/2023 effective Code(s): M45.9 - Ankylosing spondylitis of unspecified sites in spine Category: Medical Qualifiers: Ankylosing spondylitis location: multiple sites in spine Qualified Code(s): M45.0 - Ankylosing spondylitis of multiple sites in spine Plan: This is a 63-year-old female with HLA B27 positive ankylosing spondylitis, who presents for follow-up. On Humira 40 mg every other week. Over the last month patient has been having flare-ups affecting different joints including her neck, wrists, legs. On exam she has right knee synovitis. Likely Humira is losing some efficacy. Check disease activity labs. Check adalimumab level and antibodies. Advised patient to start taking OTC Aleve 220 mg 4 tabs daily, for 2 weeks, 2 tabs daily for 2 weeks and 1 tab daily for 2 weeks. Follow-up in 6 weeks Infectious screening: hepatitis panel and T spot -20 23 (2) High risk medication use: Code(s): Z79.899 - Other long wall mining machine tender (current) drug therapy Category: Medical Plan: Discussed risk of infection with Humira. Advised patient to hold the Humira as soon as she feels any signs of infection and contact us. (3) Osteopenia: Code(s): M85.80 - Other specified disorders of bone density and structure, unspecified site Category: Medical Qualifiers: Osteopenia location: multiple sites Qualified Code(s): M85.89 - Other specified disorders of bone density and structure, multiple sites Plan: Osteopenia in 2019. Patient remains on calcium and vitamin-D. No history of fractures or falls. Will check a repeat bone density scan screening for osteoporosis Plan I spent 27 minutes reviewing patient's chart, evaluating patient, ordering diagnostic workup, counseling patient and documenting in the chart Coding Level of Care Code Est Pt Level 4 (69213) Diagnoses Ankylosing spondylitis of multiple sites in spine M45.0 Ankylosing spondylitis location: multiple sites in spine High risk medication use Z79.899 Osteopenia of multiple sites M85.89 Osteopenia location: multiple sites
[2023-10-10 08:12] VITALS: BP 118/74; PULSE 81; O2SAT 97; BMI 20.5
== END 2023-10-10 08:41 | disposition home or self-care (01) ==
PROVIDERS: PCP Nurse Practitioner Family; Visit Provider Student in an Organized Health Care Education/Training Program
DX: M45.0 Ankylosing spondylitis of multiple sites in spine (principal); Z79.899 Other long term (current) drug therapy; M85.89 Other specified disorders of bone density and structure, multiple sites
CPT/HCPCS: 99214

== ENCOUNTER 2023-12-14 07:35 | Outpatient (AMB) | payer BC, SELFPAY ==
--- NOTE | 2023-12-14 07:36 | MHC.OFFVIS ---
Vital Signs 12/14/23 07:37 Height 5 ft 7 in Weight 127 lb 13.89 oz BMI 20.0 BP 110/68 Blood Pressure Location Rt brachial Position Sitting Pulse 68 Pulse Source Pulse Oximeter Intake Visit Reasons: /CONFIRMED Intake Note: Patient last seen 10/10/23 presents today for follow up and test results. Cancellation Clerk Required: No Accompanied by: Self / Same As Patient Allergies clindamycin Allergy (Intermediate, Verified 12/14/23 07:39) Rash demeclocycline [From Declomycin] Allergy (Intermediate, Verified 12/14/23 07:39) RASH Medication List - Last Reconciled 12/14/23 by Kareem Blanchard MD calcium-vitamin D3-vitamin K 650 mg-12.5 mcg-40 mcg (Viactiv) 1 tab PO BID naproxen sodium (Aleve) 220 mg PO BID PRN HPI Comments Details: 63-year-old female with HLA B27 positive ankylosing spondylitis returns for follow-up. She remains on Humira 40 mg every other week. Patient is not doing well. It looks like Humira is losing effectiveness. She is having bilateral ankle, feet stiffness and pain. Intermittent swelling. I had asked patient to take Aleve 220 mg 3 to 4 times a day regularly for a few weeks then take it for twice a day as needed. She currently takes Aleve 1 tab twice daily as needed for joint pain. Initial history: This is a 61-year-old female who is referred for evaluation of ankylosing spondylitis. Patient states that about 18 years ago she started having lower back pain and stiffness this was shortly followed by 3-4 episodes of iritis. Per patient the iritis would alternate between her right and left eye. She never had bilateral iritis. The iritis episodes would resolve with steroid eyedrops in about 2 weeks. She has not had any recurrent iritis for 18 years or so. For the past 18 years patient has taken Aleve 440 mg Twice daily. She states that her lower back pain has resolved however she has had slowly progressive neck stiffness for the last few years. She has neck pain with movement. Which she does not take the Aleve consistently she would have worsening pain and stiffness. Over the last few years patient has been having bilateral feet pain and stiffness worse on the right. The foot pain improves after walking. Patient is generally active she takes care of her daughter's children as her daughter has to go to work. She denies any history of psoriasis, no history of suggestive of IBD. No known family history of autoimmune disease. Patient was last evaluated by manager commission in 2019. [facility] Medical History Chest wall pain Chronic neck pain Osteopenia Iritis G6PD deficiency Polyarthritis ANNA positive Surgical History Hx of removal of cyst Family History Mother PMR (polymyalgia rheumatica) Father Arthritis Maternal Grandmother Arthritis Social History Household Members: Spouse Alcohol intake: never Patient Tobacco Use Status: Never used Tobacco Current occupational status: previously employed Current occupation: used to be a teacher's aid Female Reproductive History Menstrual Total pregnancies: 2 Number of Living Children: 2 Review of Systems ENT Reports neck pain Musc Reports arthralgias, Reports limited range of motion, Reports neck pain and Reports stiffness Physical Exam Vital Signs: Last Vital Signs Pulse 68 12/14/23 07:37 BP 110/68 12/14/23 07:37 BMI result Body Mass Index 20.0 Const General: cooperative, healthy appearing, comfortable and no acute distress Nutritional Appearance: average body habitus Orientation/consciousness: patient oriented x3 Resp Effort & Inspection: normal respiratory effort and able to speak in complete sentences Cardio Rate: regular rate Rhythm: regular rhythm GI Inspection: No distended Palpation (GI): Soft to palpation and nontender Back/Spine/Pelvis Other: limited range of motion of her neck limited flexion, extension, left and right rotation and left and right lateral flexion Toribio test 10-14 cm Negative straight leg raise test bilaterally Negative Zee test bilaterally Skin Other: Seborrheic keratosis on back Neuro General: patient oriented x3 Extrem Other: Minimal osteoarthritic changes of both hands with no synovitis Normal nailfold capillaroscopy No nail pitting Bilateral swollen ankles but no tenderness No MTP joint tenderness bilaterally Negative MTP squeeze test bilateral Deformities of her right foot toes Assessment & Plan Assessment & Plan (1) Ankylosing spondylitis: Comment: + HLA b27 started in 2002 low back & neck stiffness, MTP involvement, iritis no recurrence of iritis since 2002 NSAIDs all through, [place] 12/2022 when Humira was started Humira 01/2023 effective DC 12/14/2023 secondary nonresponse Code(s): M45.9 - Ankylosing spondylitis of unspecified sites in spine Category: Medical Qualifiers: Ankylosing spondylitis location: multiple sites in spine Qualified Code(s): M45.0 - Ankylosing spondylitis of multiple sites in spine Plan: This is a 63-year-old female with HLA B27 positive ankylosing spondylitis, who presents for follow-up. On Humira 40 mg every other week. Patient is doing much worse. Ongoing joint pain and stiffness especially of her knees, ankles, feet. Inflammatory markers are elevated. Blood work shows significantly elevated anti adalimumab antibodies with undetectable adalimumab blood level. Patient has developed secondary nonresponse and resistance to Humira. Will need to change DMARDs. Discussed risks and benefits of Enbrel. Patient agreed to proceed. Will start prior authorization for Enbrel Blood work before next visit in 3 months Infectious screening: hepatitis panel and T spot -20 23 (2) High risk medication use: Code(s): Z79.899 - Other termite renewal inspector (current) drug therapy Category: Medical Plan: Discussed risk of infection with Enbrel Advised patient to hold the Humira as soon as she feels any signs of infection and contact us. (3) Osteopenia: Code(s): M85.80 - Other specified disorders of bone density and structure, unspecified site Category: Medical Qualifiers: Osteopenia location: multiple sites Qualified Code(s): M85.89 - Other specified disorders of bone density and structure, multiple sites Plan: Osteopenia in 2019. Patient remains on calcium and vitamin-D. No history of fractures or falls. Will check a repeat bone density scan screening for osteoporosis Plan I spent 27 minutes reviewing patient's chart, evaluating patient, ordering diagnostic workup, counseling patient and documenting in the chart Orders: Orders Complete Blood Count Auto Diff 3 Months M45.0 - Ankylosing spondylitis of multiple sites in spine Erythrocyte Sedimentation Rate 3 Months M45.0 - Ankylosing spondylitis of multiple sites in spine Comprehensive Met. Panel 3 Months M45.0 - Ankylosing spondylitis of multiple sites in spine C Reactive Protein 3 Months M45.0 - Ankylosing spondylitis of multiple sites in spine Medications: Discontinued Humira(CF) Pen (adalimumab) Discontinued Reason: Doctor's Order 40 mg (0.4 mL) subcut Q2W 2 ea 2RF NS M45.0 - Ankylosing spondylitis of multiple sites in spine Coding Level of Care Code Est Pt Level 4 (61288) Diagnoses Ankylosing spondylitis of multiple sites in spine M45.0 Ankylosing spondylitis location: multiple sites in spine High risk medication use Z79.899 Osteopenia of multiple sites M85.89 Osteopenia location: multiple sites
[2023-12-14 07:37] VITALS: BP 110/68; PULSE 68
== END 2023-12-14 07:53 | disposition home or self-care (01) ==
PROVIDERS: PCP Nurse Practitioner Family; Visit Provider Student in an Organized Health Care Education/Training Program
DX: M45.0 Ankylosing spondylitis of multiple sites in spine (principal); Z79.899 Other long term (current) drug therapy; M85.89 Other specified disorders of bone density and structure, multiple sites
CPT/HCPCS: 99214

== ENCOUNTER → 2023-12-14 07:35 | Outpatient (BNVA) | payer BC, SELFPAY | PROVIDERS: PCP Nurse Practitioner Family; Visit Provider Student in an Organized Health Care Education/Training Program ==

== ENCOUNTER 2024-03-05 09:35 | Outpatient (REF) | payer BC, SELFPAY ==
[2024-03-05 09:57] LABS: MANUAL DIFF FLAG NO
[2024-03-05 10:16] LABS: Basophils Absolute Auto 0.1 X10*3/uL (0.0-0.2); Basophils Percent Auto 1.1 % (0-2); Eosinophils Absolute Auto 0.1 X10*3/uL (0.0-0.4); Eosinophils Percent Auto 1.4 % (0-4); Hematocrit 41.3 % (37.0-47.0); Hemoglobin 13.7 g/dl (12.0-16.0); Imm Gran Abs Auto 0.01 X10*3/uL (0.00-0.03); Imm Gran Pct Auto 0.2 % (0.0-0.4); Lymphocytes Absolute Auto 1.6 X10*3/uL (1.2-4.9); Mean Corpuscular HGB Conc 33.2 g/dl (31.0-35.0); Mean Corpuscular Volume 90.6 fL (80.0-98.0); Mean Platelet Volume 9.7 fL (9.4-12.3); Monocytes Absolute Auto 0.3 X10*3/uL (0.1-1.2); Monocytes Percent Auto 6.8 % (2-11); Neutrophils Absolute Auto 2.4 x10*3/uL (2.0-8.3); Neutrophils Percent Auto 53.5 % (45-73); Platelet Count 222 X10*3/uL (160-400); Red Blood Count 4.56 X10*6/uL (4.20-5.50); Red Cell Distribution Width 14.1 % (11.0-16.0); White Blood Count 4.4 X10*3/uL (4.8-10.8)
[2024-03-05 10:51] LABS: Erythrocyte Sedimentation Rate 11 MM/HR (0-20)
[2024-03-05 11:10] LABS: Alanine Aminotransferase 14 U/L (0-31); Albumin Level 4.4 g/dL (3.5-5.0); Alkaline Phosphatase 63 U/L (39-117); Anion Gap 13 (12-20); Aspartate Amino Transferase 17 U/L (5-31); Bilirubin Total 0.6 mg/dL (0.0-1.0); Blood Urea Nitrogen 20 mg/dL (9-16); C Reactive Protein < 0.10 mg/dL (< or = 0.50); Carbon Dioxide 26 mmol/L (22-29); Chloride 107 mmol/L (96-108); Estimated Glomerular Filt Rate > 60; Glucose Random 102 mg/dL (60-115); Potassium 4.4 mmol/L (3.3-5.1); Sodium 142 mmol/L (135-145); Total Protein 7.7 g/dL (6.5-8.0)
== END 2024-03-05 09:36 | disposition home or self-care (01) ==
LOC: HO.LAB 09:35
PROVIDERS: PCP Nurse Practitioner Family; Visit Provider Student in an Organized Health Care Education/Training Program
DX: M45.9 Ankylosing spondylitis of unspecified sites in spine (principal); M45.0 Ankylosing spondylitis of multiple sites in spine; Z79.899 Other long term (current) drug therapy
CPT/HCPCS: 36415; 80053; 85025; 85652; 86140

== ENCOUNTER 2024-03-15 08:07 | Outpatient (AMB) | payer BC, SELFPAY ==
--- NOTE | 2024-03-15 08:10 | MHC.OFFVIS ---
Vital Signs 03/15/24 08:12 Height 5 ft 7 in Weight 130 lb 11.746 oz BMI 20.5 BP 112/60 Blood Pressure Location Rt brachial Position Sitting Pulse 64 Pulse Source Pulse Oximeter Pulse Oximetry (%) 99 Oxygen Delivery Method Room Air Intake Visit Reasons: Intake Note: Patient presents for . Allergies clindamycin Allergy (Intermediate, Verified 03/15/24 08:12) Rash demeclocycline [From Declomycin] Allergy (Intermediate, Verified 03/15/24 08:12) RASH Medication List - Last Reconciled 03/15/24 by Kareem Blanchard MD calcium-vitamin D3-vitamin K 650 mg-12.5 mcg-40 mcg (Viactiv) 1 tab PO BID Enbrel SureClick (etanercept) 50 mg subcut QWEEK NS naproxen sodium (Aleve) 220 mg PO BID PRN HPI Comments Details: 63-year-old female with HLA B27 positive ankylosing spondylitis returns for follow-up. Her last visit we switched Humira to Enbrel. Patient has been using it for 11 weeks now. She does not have to pay anything for it. She gets it through the patient assistance program. Has not had any side effects except for injection site reactions. She is doing much better overall. Her feet do not hurt. She does not use any NSAIDs. Denies any recent illnesses or fevers Initial history: This is a 61-year-old female who is referred for evaluation of ankylosing spondylitis. Patient states that about 18 years ago she started having lower back pain and stiffness this was shortly followed by 3-4 episodes of iritis. Per patient the iritis would alternate between her right and left eye. She never had bilateral iritis. The iritis episodes would resolve with steroid eyedrops in about 2 weeks. She has not had any recurrent iritis for 18 years or so. For the past 18 years patient has taken Aleve 440 mg Twice daily. She states that her lower back pain has resolved however she has had slowly progressive neck stiffness for the last few years. She has neck pain with movement. Which she does not take the Aleve consistently she would have worsening pain and stiffness. Over the last few years patient has been having bilateral feet pain and stiffness worse on the right. The foot pain improves after walking. Patient is generally active she takes care of her daughter's children as her daughter has to go to work. She denies any history of psoriasis, no history of suggestive of IBD. No known family history of autoimmune disease. Patient was last evaluated by bench repair technician in 2019. [facility] Medical History Chest wall pain Chronic neck pain Osteopenia Iritis G6PD deficiency Polyarthritis ANNA positive Surgical History Hx of removal of cyst Family History Mother PMR (polymyalgia rheumatica) Father Arthritis Maternal Grandmother Arthritis Social History Household Members: Spouse Alcohol intake: never Patient Tobacco Use Status: Never used Tobacco Current occupational status: previously employed Current occupation: used to be a teacher's aid Female Reproductive History Menstrual Total pregnancies: 2 Number of Living Children: 2 Review of Systems Musc Denies joint swelling and Reports limited range of motion Physical Exam Vital Signs: Last Vital Signs Pulse 64 03/15/24 08:12 BP 112/60 03/15/24 08:12 Pulse Ox 99 03/15/24 08:12 Oxygen Delivery Method Room Air 03/15/24 08:12 BMI result Body Mass Index 20.5 Const General: cooperative, healthy appearing, comfortable and no acute distress Nutritional Appearance: average body habitus Orientation/consciousness: patient oriented x3 Resp Effort & Inspection: normal respiratory effort and able to speak in complete sentences Cardio Rate: regular rate Rhythm: regular rhythm GI Inspection: No distended Palpation (GI): Soft to palpation and nontender Back/Spine/Pelvis Other: Significantly limited range of motion of her neck limited flexion, extension, left and right rotation and left and right lateral flexion (chronic) Toribio test 10-14 cm Negative straight leg raise test bilaterally Negative Zee test bilaterally Skin Other: Seborrheic keratosis on back Neuro General: patient oriented x3 Extrem Other: Minimal osteoarthritic changes of both hands with no synovitis Normal nailfold capillaroscopy No nail pitting No ankle swelling or tenderness bilaterally no MTP tenderness bilaterally No MTP joint tenderness bilaterally Negative MTP squeeze test bilateral Deformities of her right foot toes Results Reviewed Results Reviewed: Labs 10/2021 CMP unremarkable HbA1c 5.6% X-ray cervical spine 12/2018 Impression: ankylosis from C2-C6 at the posterior elements. Minor disc height loss at C5-C6. Trace scoliosis Labs 12/2018? G6PD 10.9 (8.8-13.4) SPEP showed polyclonal hypergammaglobulinemia CRP 13.4 (<4.0) CPK 47 C3 187 (81-157) C4 18 (12-39) ANNA 1-320 homogeneous SSA/SSB/Salas/PUMP MECHANIC/dsDNA negative Feet x-rays from 06/2018 Impression:? Mild diffuse osteopenia with mild spurring in the midfoot and hindfoot.? No erosive arthropathy or subluxation.? Prominent calculi in [place] consistent with plantar fasciitis on the right with minor plantar calcaneal spurring on the left Bilateral hand x-rays from 06/2018? Impression:? No osteopenia, erosive changes, subluxation or significant degenerative changes DEXA 07/2018? Lumbar spine T-score -2.1 Left hip T-score-1.5? Femoral neck T-score -2.2 Assessment & Plan Assessment & Plan (1) Ankylosing spondylitis: Comment: + HLA b27 started in 2002 low back & neck stiffness, MTP involvement, iritis no recurrence of iritis since 2002 NSAIDs all through, [place] 12/2022 when Humira was started Humira 01/2023 effective [place] 12/14/2023 secondary nonresponse Enbrel 12/2023 effective Code(s): M45.9 - Ankylosing spondylitis of unspecified sites in spine Category: Medical Qualifiers: Ankylosing spondylitis location: multiple sites in spine Qualified Code(s): M45.0 - Ankylosing spondylitis of multiple sites in spine Plan: This is a 63-year-old female with HLA B27 positive ankylosing spondylitis, who presents for follow-up. On Enbrel 50 mg once weekly. Doing much better overall. The synovitis on exam. Inflammatory markers normalized. Does not use any NSAIDs. Continue Enbrel 50 mg once weekly Blood work before next visit in 4 months Infectious screening: hepatitis panel and T spot -20 23 (2) High risk medication use: Code(s): Z79.899 - Other dedicated intermodal truck driver (current) drug therapy Category: Medical Plan: Discussed risk of infection with Enbrel Advised patient to hold the Enbrel as soon as she feels any signs of infection and contact us. (3) Osteopenia: Code(s): M85.80 - Other specified disorders of bone density and structure, unspecified site Category: Medical Qualifiers: Osteopenia location: multiple sites Qualified Code(s): M85.89 - Other specified disorders of bone density and structure, multiple sites Plan: Osteopenia in 2019. Patient remains on calcium and vitamin-D. No history of fractures or falls. A repeat DEXA scan was ordered last visit. Did not get done. I will discuss further with patient next visit (4) Immunization counseling: Code(s): Z71.85 - Encounter for immunization safety counseling Category: Medical Plan: Patient received her flu shot. And she will get COVID booster coming few weeks. Advised patient not to hold Enbrel when getting those vaccines Plan I spent 27 minutes reviewing patient's chart, evaluating patient, ordering diagnostic workup, counseling patient and documenting in the chart Orders: Orders Complete Blood Count Auto Diff 4 Months M45.0 - Ankylosing spondylitis of multiple sites in spine Comprehensive Met. Panel 4 Months M45.0 - Ankylosing spondylitis of multiple sites in spine C Reactive Protein 4 Months M45.0 - Ankylosing spondylitis of multiple sites in spine Erythrocyte Sedimentation Rate 4 Months M45.0 - Ankylosing spondylitis of multiple sites in spine Medications: Refilled Enbrel SureClick (etanercept) 50 mg subcut QWEEK 4 mL 3RF NS Coding Level of Care Code Est Pt Level 5 (10562) Complex EM visit Add On G2211 Diagnoses Ankylosing spondylitis of multiple sites in spine M45.0 Ankylosing spondylitis location: multiple sites in spine High risk medication use Z79.899 Osteopenia of multiple sites M85.89 Osteopenia location: multiple sites Immunization counseling Z71.85
[2024-03-15 08:12] VITALS: BP 112/60; PULSE 64; O2SAT 99; BMI 20.5
== END 2024-03-15 08:37 | disposition home or self-care (01) ==
PROVIDERS: PCP Nurse Practitioner Family; Visit Provider Student in an Organized Health Care Education/Training Program
DX: M45.0 Ankylosing spondylitis of multiple sites in spine (principal); Z79.899 Other long term (current) drug therapy; M85.89 Other specified disorders of bone density and structure, multiple sites; Z71.85 Encounter for immunization safety counseling
CPT/HCPCS: 99214

== ENCOUNTER → 2024-03-15 08:07 | Outpatient (BNVA) | payer BC, SELFPAY | PROVIDERS: PCP Nurse Practitioner Family; Visit Provider Student in an Organized Health Care Education/Training Program ==

== ENCOUNTER 2024-10-30 13:19 | Outpatient (AMB) | payer MEDICARE, SELFPAY ==
--- NOTE | 2024-10-30 13:30 | A.OFFVIS_ITS ---
Vital Signs 10/30/24 13:31 Height 5 ft 7 in Weight 136 lb 3.931 oz BMI 21.3 BP 112/64 Blood Pressure Location Lt brachial Position Sitting Pulse 69 Pulse Source Pulse Oximeter Pulse Oximetry (%) 99 Oxygen Delivery Method Room Air Intake Visit Reasons: Intake Note: Patient presents for follow up on and lab review. She was last seen by Dr. Blanchard on 03/15/24. Allergies clindamycin Allergy (Intermediate, Verified 10/30/24 13:33) Rash demeclocycline [From Declomycin] Allergy (Intermediate, Verified 10/30/24 13:33) RASH Medication List - Last Reconciled 10/30/24 by Madina Nolasco MD calcium-vitamin D3-vitamin K 650 mg-12.5 mcg-40 mcg (Viactiv) 1 tab PO BID Enbrel SureClick (etanercept) 50 mg subcut QWEEK NS HPI Comments Details: Patient is a 64-year-old female with ankylosing spondylitis and osteopenia here today for follow up Interval History: Patient last seen 03/15/[address] Blanchard. At that time she was following up for her HLA B27 positive ankylosing spondylitis. She was switched from Humira to Enbrel with improvement in her symptoms feeling better overall. Her exam had improved and her inflammatory markers normalized. Patient continues to do well No complaints No falls or fractures Rheumatologic History: + HLA b27 started in 2002 low back & neck stiffness, MTP involvement, iritis no recurrence of iritis since 2002 NSAIDs all through, [place] 12/2022 when Humira was started Humira 01/2023 effective [place] 12/14/2023 secondary nonresponse Enbrel 12/2023 effective Initial history: This is a 61-year-old female who is referred for evaluation of ankylosing spondylitis. Patient states that about 18 years ago she started having lower back pain and stiffness this was shortly followed by 3-4 episodes of iritis. Per patient the iritis would alternate between her right and left eye. She never had bilateral iritis. The iritis episodes would resolve with steroid eyedrops in about 2 weeks. She has not had any recurrent iritis for 18 years or so. For the past 18 years patient has taken Aleve 440 mg Twice daily. She states that her lower back pain has resolved however she has had slowly progressive neck stiffness for the last few years. She has neck pain with movement. Which she does not take the Aleve consistently she would have worsening pain and stiffness. Over the last few years patient has been having bilateral feet pain and stiffness worse on the right. The foot pain improves after walking. Patient is generally active she takes care of her daughter's children as her daughter has to go to work. She denies any history of psoriasis, no history of suggestive of IBD. No known family history of autoimmune disease. Patient was last evaluated by assessment expert in 2019. Current Rheumatology Medication(s): Enbrel 50 mg weekly Naproxen 220 mg b.i.d. p.r.n. (not using) [facility]LY [facility], [facility] Medical History Chest wall pain Chronic neck pain Osteopenia Iritis G6PD deficiency Polyarthritis ANNA positive Surgical History Hx of removal of cyst Family History Mother PMR (polymyalgia rheumatica) Father Arthritis Maternal Grandmother Arthritis Social History Household Members: Spouse Alcohol intake: never Patient Tobacco Use Status: Never used Tobacco Current occupational status: previously employed Current occupation: used to be a teacher's aid Review of Systems Const Details: Review of Systems Constitutional: Denies fever, chills, weight loss ENT: Denies vision changes, eye pain or eye redness, dental caries, dry mouth GI: Denies nausea, vomiting, diarrhea, abdominal pain, change in BM Pulm: Denies SOB, PAGAN, hemoptysis, wheezing Cards: Denies chest pain, palpitations Skin: Denies Raynaud's, rash, nail changes, photosensitivity, BOAT CLEANER: Denies headaches, weakness, paresthesias, recurrent falls MSK: as per HPI All other systems reviewed and are unremarkable except noted above Physical Exam Vital Signs: Last Vital Signs Pulse 69 10/30/24 13:31 BP 112/64 10/30/24 13:31 Pulse Ox 99 10/30/24 13:31 Oxygen Delivery Method Room Air 10/30/24 13:31 BMI result Body Mass Index 21.3 Vital signs reviewed Physical Examination CONSTITUITIONAL Patient alert and cooperative. Well appearing and in no apparent painful distress HEENT Conjunctiva and sclera clear. ?Pupils equal round and reactive to light. ?No lymphadenopathy. ? CHEST/RESPIRATORY SYSTEM Normal respiratory effort and able to speak in complete sentences. ?Clear to auscultation bilaterally. ?No crackles, rales, rhonchi, wheezes heard. CARDIAC SYSTEM Regular rate and rhythm. ?S1 and S2 heard no murmurs. ?Radial pulses intact bilaterally MSK Hands: ?Able to make a fist. No synovitis noted to the MCPs, PIPs or DIPs. ?No tenderness to palpation of these joints. Herbeden's nodes Wrists: ?Full range of motion at the wrists without pain. ?No tenderness to palpation or synovitis noted to the wrists. Elbows: Full range of motion without pain. No tenderness, weakness, swelling, increased warmth or erythema. Shoulders: Full range of active range of motion without pain. No tenderness, weakness, swelling, increased warmth or erythema. Knees: ?Full range of motion. ?No tenderness, swelling, increased warmth or erythema.?No effusion. Crepitations felt bilaterally Ankles: Full range of motion. ?No tenderness, swelling, increased warmth or erythema.? Feet: ?Negative squeeze test. ?No tenderness to palpation or swelling of the MTPs. Tender points:?No tenderness to palpation of the bilateral trapezius, supraspinatus, greater trochanters, anterior costochondral junctions, bilateral gluteal areas, bilateral suboccipital muscle insertions SKIN Skin intact without rashes. Results Reviewed Results Reviewed: Laboratory Tests 03/05/24 09:56 WBC 4.4 L RBC 4.56 Hgb 13.7 Hct 41.3 Plt Count 222 ESR 11 Sodium 142 Potassium 4.4 D Chloride 107 Carbon Dioxide 26 BUN 20 H Creatinine 0.73 AST 17 ALT 14 C-Reactive Protein < 0.10 Immunology labs 07/24/22 09:40 Rheumatoid Factor < 13.0 Cycl Citrul Peptide IgG <16 HLA-B27 Positive A Infectious serologies 07/24/22 08/27/22 09:40 08:16 Hepatitis A IgM Ab Nonreactive Hep Bs Antigen Negative Hep Bs Antibody NONREACTIVE Hep B Core Total Ab Nonreactive Hepatitis C Ab (EIA) Nonreactive TB Test (T-Spot) Com Negative Assessment & Plan Assessment & Plan (1) Ankylosing spondylitis: Comment: + HLA b27 started in 2002 low back & neck stiffness, MTP involvement, iritis no recurrence of iritis since 2002 NSAIDs all through, [place] 12/2022 when Humira was started Humira 01/2023 effective [place] 12/14/2023 secondary nonresponse (+++ ADA antibodies) Enbrel 12/2023 effective Code(s): M45.9 - Ankylosing spondylitis of unspecified sites in spine Category: Medical Qualifiers: Ankylosing spondylitis location: multiple sites in spine Qualified Code(s): M45.0 - Ankylosing spondylitis of multiple sites in spine Plan: #Ankylosing spondylitis Patient is a 64-year-old female with HLA B27 positive ankylosing spondylitis here today for follow up. Currently in remission on Enbrel monotherapy Plan - Enbrel 50mg SC weekly - Get labs from [facility] - RTC 6 months - Labs before visit: CBC, CMP, ESR, CRP, Vit D, Hep panel and T spot (2) Osteoporosis: Comment: DEXA 02/2024 ([facility]). AP spine -1.3, total hip -2.5, Fem neck -2.7 Code(s): M81.0 - Age-related osteoporosis without current pathological fracture Category: Medical Qualifiers: Osteoporosis type: age-related Presence of current pathological fracture: without current pathological fracture Qualified Code(s): M81.0 - Age- related osteoporosis without current pathological fracture Plan: #Osteoporosis Most recent DEXA showing osteoporosis of the femur. Discussed treatment options and patient is willing to try alendronate. Risks and benefits discussed Plan - Continue vit D supplementation - Alendronate 70mg weekly - Vit D at next blood draw - Weight bearing exercises - Pamphlet given (3) Encounter for monitoring of etanercept therapy: Code(s): Z51.81 - Encounter for therapeutic drug level monitoring; Z79.620 - [facility] (current) use of immunosuppressive biologic Plan: #Long-term Use of TNF Inhibitors: Etanercept Discussed with the patient the benefits and risks of TNF inhibitors for the management of the rheumatic condition Benefits include reduce pain, maintenance of remission and reduction of flares as well as ?progression of the disease Risks include injection sites/infusion reactions, serious infections (such as bacterial infections, opportunistic infections), malignancy, delaminating syndromes, autoimmune phenomena, CHF exacerbations, palmar plantar psoriasis and cytopenias Recommended rotating injection sites, and holding medication during and for up to 1 week after resolution of a febrile illness or open skin wound Plan I spent 30 minutes reviewing the record and labs, taking a history, examining the patient, discussing the treatment plan, ordering diagnostic work up and documenting in the medical record Orders: Orders Complete Blood Count Auto Diff 6 Months M45.0 - Ankylosing spondylitis of multiple sites in spine Comprehensive Met. Panel 6 Months M45.0 - Ankylosing spondylitis of multiple sites in spine C Reactive Protein 6 Months M45.0 - Ankylosing spondylitis of multiple sites in spine Hepatitis A,B,C Profile 6 Months M45.0 - Ankylosing spondylitis of multiple sites in spine T Spot TB 6 Months M45.0 - Ankylosing spondylitis of multiple sites in spine Erythrocyte Sedimentation Rate 6 Months M45.0 - Ankylosing spondylitis of multiple sites in spine Vitamin D 25-OH Total 6 Months E55.9 - Vitamin D deficiency, unspecified, M81.0 - Age-related osteoporosis without current pathological fracture Medications: New alendronate 70 mg PO QWEEK 90 days 13 tabs 1RF M81.0 - Age-related osteoporosis without current pathological fracture Refilled Enbrel SureClick (etanercept) 50 mg subcut QWEEK 4 mL 4RF NS Coding Level of Care Code Est Pt Level 4 (20965) Complex EM visit Add On G2211 Diagnoses Ankylosing spondylitis of multiple sites in spine M45.0 Ankylosing spondylitis location: multiple sites in spine Age-related osteoporosis without current pathological fracture M81.0 Osteoporosis type: age-related Presence of current pathological fracture: without current pathological fracture Encounter for monitoring of etanercept therapy Z51.81; Z79.620
[2024-10-30 13:31] VITALS: BP 112/64; PULSE 69; O2SAT 99; BMI 21.3
== END 2024-10-30 14:28 | disposition home or self-care (01) ==
LOC: HO.RHE 13:20
PROVIDERS: PCP Nurse Practitioner Family; Visit Provider Student in an Organized Health Care Education/Training Program
DX: M45.0 Ankylosing spondylitis of multiple sites in spine (principal); M81.0 Age-related osteoporosis without current pathological fracture; Z51.81 Encounter for therapeutic drug level monitoring; Z79.620 Long term (current) use of immunosuppressive biologic
CPT/HCPCS: 99214; G2211

== ENCOUNTER → 2024-10-30 13:19 | Outpatient (BNVA) | payer MEDICARE, SELFPAY | PROVIDERS: PCP Nurse Practitioner Family; Visit Provider Student in an Organized Health Care Education/Training Program | DX: M81.0 Age-related osteoporosis without current pathological fracture (principal); M45.0 Ankylosing spondylitis of multiple sites in spine; Z51.81 Encounter for therapeutic drug level monitoring; Z79.620 Long term (current) use of immunosuppressive biologic | CPT/HCPCS: 99212 ==

== ENCOUNTER 2025-05-02 10:37 | Outpatient (AMB) | payer MEDICARE, SELFPAY ==
--- NOTE | 2025-05-02 10:44 | A.OFFVIS_ITS ---
Vital Signs 05/02/25 10:51 Height 5 ft 7 in Weight 132 lb 11.492 oz BMI 20.8 BP 115/62 Blood Pressure Location Lt brachial Position Sitting Pulse 67 Pulse Source Pulse Oximeter Pulse Oximetry (%) 98 Oxygen Delivery Method Room Air Intake Visit Reasons: f/u ank spond Intake Note: Patient presents for follow up. Allergies clindamycin Allergy (Intermediate, Verified 10/30/24 13:33) Rash demeclocycline (From Declomycin) Allergy (Intermediate, Verified 10/30/24 13:33) RASH HPI Comments Details: Patient is a 64-year-old female with ankylosing spondylitis and osteopenia here today for follow up Interval History: Patient last seen 10/30/24 with me - On Enbrel 50mg SC every week - Patient continues to do well - No complaints - No falls or fractures Today - On Enbrel 50mg SC every week - Continues to do well Social Hx: Son-in-law with stage 4 esophageal cancer Rheumatologic History: + HLA b27 started in 2002 low back & neck stiffness, MTP involvement, iritis no recurrence of iritis since 2002 NSAIDs all through, DC 12/2022 when Humira was started Humira 01/2023 effective DC 12/14/2023 secondary nonresponse Enbrel 12/2023 effective Initial history: This is a 61-year-old female who is referred for evaluation of ankylosing spondylitis. Patient states that about 18 years ago she started having lower back pain and stiffness this was shortly followed by 3-4 episodes of iritis. Per patient the iritis would alternate between her right and left eye. She never had bilateral iritis. The iritis episodes would resolve with steroid eyedrops in about 2 weeks. She has not had any recurrent iritis for 18 years or so. For the past 18 years patient has taken Aleve 440 mg Twice daily. She states that her lower back pain has resolved however she has had slowly progressive neck stiffness for the last few years. She has neck pain with movement. Which she does not take the Aleve consistently she would have worsening pain and stiffness. Over the last few years patient has been having bilateral feet pain and stiffness worse on the right. The foot pain improves after walking. Patient is generally active she takes care of her daughter's children as her daughter has to go to work. She denies any history of psoriasis, no history of suggestive of IBD. No known family history of autoimmune disease. Patient was last evaluated by flower grower in 2019. Current Rheumatology Medication(s): Enbrel 50 mg weekly [facility] Medical History (Updated 10/30/24 @ 14:22 by Madina Nolasco MD) Osteoporosis Chest wall pain Chronic neck pain Iritis G6PD deficiency Polyarthritis ANNA positive Surgical History (Updated 05/02/25 @ 10:51 by FRANNIE Sanchez) History of cataract surgery Hx of removal of cyst Family History Mother PMR (polymyalgia rheumatica) Father Arthritis Maternal Grandmother Arthritis Social History Household Members: Spouse Alcohol intake: never Patient Tobacco Use Status: Never used Tobacco Current occupational status: previously employed Current occupation: used to be a teacher's aid Review of Systems Narrative Review of Systems Constitutional: Denies fever, chills, weight loss ENT: Denies vision changes, eye pain or eye redness, dental caries, dry mouth GI: Denies nausea, vomiting, diarrhea, abdominal pain, change in BM Pulm: Denies SOB, PAGAN, hemoptysis, wheezing Cards: Denies chest pain, palpitations Skin: Denies Raynaud's, rash, nail changes, photosensitivity, FOOD STAND MANAGER: Denies headaches, weakness, paresthesias, recurrent falls MSK: as per HPI All other systems reviewed and are unremarkable except noted above Physical Exam Exam Exam: Vital signs reviewed Physical Examination CONSTITUITIONAL Patient alert and cooperative. Well appearing and in no apparent painful distress MSK Neck appears stiff Hands * Right Hand: Able to make a fist. No swelling or tenderness to palpation of the MCPs, PIPs or DIPs. * Left Hand: Able to make a fist. No swelling or tenderness to palpation of the MCPs, PIPs or DIPs. Wrists * Right Wrist: Full ROM to flexion and extension. No swelling or TTP * Left Wrist: Full ROM to flexion and extension. No swelling or TTP Elbows * Right Elbow: Full ROM. No swelling or TTP. No TTP of the medial epicondyle. No TTP of the lateral epicondyle * Left Elbow: Full ROM. No swelling or TTP. No TTP of the medial epicondyle. No TTP of the lateral epicondyle Shoulders * Right shoulder: Full ROM. No swelling noted. No TTP of the AC joint. No TTP of the subacromial bursa. No TTP of the posterior shoulder * Left shoulder: Full ROM. No swelling noted. No TTP of the AC joint. No TTP of the subacromial bursa. No TTP of the posterior shoulder Knees * Right knee: Full ROM. No swelling noted. No TTP of the knee joint line. No TTP of pes anserine bursa * Left knee: Full ROM. No swelling noted. No TTP of the knee joint line. No TTP of pes anserine bursa. * Crepitations felt bilaterally Ankles * Right ankle: Good ankle dorsiflexion and plantar flexion. No swelling. No TTP of the ankle joint * Left ankle: Good ankle dorsiflexion and plantar flexion. No swelling. No TTP of the ankle joint Feet * Right foot: Negative squeeze test * Left foot: Negative squeeze test Tender points? * No tenderness to palpation of the bilateral trapezius, supraspinatus, anterior costochondral junctions, bilateral suboccipital muscle insertions SKIN No rashes Vital Signs: Last Vital Signs Pulse 67 05/02/25 10:51 BP 115/62 05/02/25 10:51 Pulse Ox 98 05/02/25 10:51 Oxygen Delivery Method Room Air 05/02/25 10:51 BMI result Body Mass Index 20.8 Results Reviewed Results Reviewed: 10/25/24 Lab Shaun WBC 4.7 Hb 13.7 Plt 230 BUN 20 Cr 0.64 eGFR 98 AST 18 ALT 12 ESR 12 CRP <1 Assessment & Plan Assessment & Plan (1) Ankylosing spondylitis: Comment: + HLA b27 started in 2002 low back & neck stiffness, MTP involvement, iritis no recurrence of iritis since 2002 NSAIDs all through, DC 12/2022 when Humira was started Humira 01/2023 effective DC 12/14/2023 secondary nonresponse (+++ ADA antibodies) Enbrel 12/2023 effective Code(s): M45.9 - Ankylosing spondylitis of unspecified sites in spine Category: Medical Qualifiers: Ankylosing spondylitis location: multiple sites in spine Qualified Code(s): M45.0 - Ankylosing spondylitis of multiple sites in spine Plan: #Ankylosing spondylitis Patient is a 64-year-old female with HLA B27 positive ankylosing spondylitis here today for follow up. Currently in remission on Enbrel monotherapy Plan - Enbrel 50mg SC weekly - Follow up [facility] labs - RTC 6 months - Labs before visit: CBC, CMP, ESR, CRP, Vit D (2) Osteoporosis: Comment: DEXA 02/2024 ([facility]). AP spine -1.3, total hip -2.5, Fem neck -2.7 Code(s): M81.0 - Age-related osteoporosis without current pathological fracture Category: Medical Qualifiers: Osteoporosis type: age-related Presence of current pathological fracture: without current pathological fracture Qualified Code(s): M81.0 - Age- related osteoporosis without current pathological fracture Plan: #Osteoporosis Most recent DEXA showing osteoporosis of the femur. Did not take the medication, afraid of the side effects Plan - Continue vit D supplementation - Alendronate 70mg weekly, advised to start taking but patient wants to hold off for now - Vit D at next blood draw (3) Encounter for monitoring of etanercept therapy: Code(s): Z51.81 - Encounter for therapeutic drug level monitoring; Z79.620 - technician terminal and repeater (current) use of immunosuppressive biologic Plan: #Long-term Use of TNF Inhibitors: Etanercept Discussed with the patient the benefits and risks of TNF inhibitors for the management of the rheumatic condition Benefits include reduce pain, maintenance of remission and reduction of flares as well as ?progression of the disease Risks include injection sites/infusion reactions, serious infections (such as bacterial infections, opportunistic infections), malignancy, delaminating syndromes, autoimmune phenomena, CHF exacerbations, palmar plantar psoriasis and cytopenias Recommended rotating injection sites, and holding medication during and for up to 1 week after resolution of a febrile illness or open skin wound Plan I spent 30 minutes reviewing the record and labs, taking a history, examining the patient, discussing the treatment plan, ordering diagnostic work up and docu menting in the medical record Coding Level of Care Code Est Pt Level 4 (50290) Complex EM visit Add On G2211 Diagnoses Ankylosing spondylitis of multiple sites in spine M45.0 Ankylosing spondylitis location: multiple sites in spine Age-related osteoporosis without current pathological fracture M81.0 Osteoporosis type: age-related Presence of current pathological fracture: without current pathological fracture Encounter for monitoring of etanercept therapy Z51.81; Z79.620
[2025-05-02 10:51] VITALS: BP 115/62; PULSE 67; O2SAT 98; BMI 20.8
--- OUTSIDE RECORDS SUMMARY | 2025-05-02 15:45 | XMS_ITS | Clinical Summary ---
Author Organization [facility] Address [address] [address] Phone Care Team Providers Care Acid Etch Operator Name Role Phone Bernie Quinteros SUPERVISOR LOOPING Primary Care Provider [phone] Allergies Active Allergy Reactions Criticality Noted Date Comments Clindamycin Phosphate Rash Low 06/15/2018 Demeclocycline Rash Low 06/15/2018 Medications naproxen sodium (ALEVE) 220 MG tablet Take 440 mg by mouth 2 (two) times a day with meals. Active calcium carb/vitamin D3/vit K1 (VIACTIV ORAL) Take by mouth 2 (two) times a day. Active Active Problems Problem Noted Date Diagnosed Date Polyarthritis, inflammatory 12/13/2018 Assessment & Plan (12/14/2018 10:17 AM EDT): Due to ongoing elevated CRP and ESR with mild synovial thickening on couple of joints of her hands I readdressed the benefit of Plaquenil therapy and encouraged her to reconsider in addition to current nonsteroidal anti-inflammatory therapy. She may benefit from splinting, assistive devices and topical preparations. Osteopenia of multiple sites 12/13/2018 Assessment & Plan (12/14/2018 10:19 AM EDT): Proper calcium and vitamin D supplementation. Daily weightbearing exercise. Fall and fracture prevention strategies. I provided her with pamphlet on bone preserving therapy with weekly oral Fosamax that may provide additional benefit Neck stiffness 12/13/2018 Assessment & Plan (12/14/2018 10:20 AM EDT): Proper posture. Ergonomic assessment of her workstation. Joint protection, energy conservation strategies. Gentle and regular stretching. Proper neck support for night sleep. Arthralgia of multiple sites 06/15/2018 Iritis, recurrent, bilateral 06/15/2018 Assessment & Plan (12/14/2018 10:19 AM EDT): Recent ophthalmologic checkup in spring 2018 was reassuring. Regular eye checkup as scheduled. Avoid eye strain, bright lights including sunlight. Chronic neck pain 06/15/2018 ANNA positive 06/15/2018 Assessment & Plan (12/14/2018 10:15 AM EDT): I reviewed with Eileen that positive ANNA in itself does not make any diagnosis however puts her at risk for getting 1 of the diseases associated with positive ANNA at some point in time in the future. There were no immunologic abnormalities suggestive of systemic lupus erythematosus, Sjogren's syndrome, mixed connective tissue disease etc. at the time of evaluation. She is educated to avoid any sick contacts. Keep up-to-date with age-appropriate screenings and preventive strategies. Avoid sunburns. Eat well-balanced nutritionally diet. Continue gentle, regular exercise routine. Periodic checkup may be useful. Chest wall pain 06/15/2018 Right hand paresthesia 06/15/2018 Postmenopausal 06/15/2018 Social History Tobacco Use Types Packs/Day Years Used Date Smoking Tobacco: Never Smokeless Tobacco: Never Education Answer Date Recorded Are you interested in more education? Not on mei e 10/08/2022 Are you concerned about learning? Not on file 10/08/2022 No 10/08/2022 No 10/08/2022 Digital Access Answer Date Recorded No 11/06/2022 No 11/06/2022 No 11/06/2022 Reliable internet access at home? Not on file 11/06/2022 Device with a working camera? Not on file Comments Unknown Sex and Gender Information Value Date Recorded Sex Assigned at Not on file Legal Sex Female 2:19 PM EDT Gender Identity Not on file Sexual Orientation Not on file Last Filed Vital Signs Vital Sign Reading Time Taken Comments Blood Pressure 118/64 12/13/2018 9:38 AM EDT Pulse - - Temperature - - Respiratory Rate - - Oxygen Saturation - - Inhaled Oxygen Concentration - - Weight 62.7 kg (138 lb 3.2 oz) 12/13/2018 9:38 A M EDT Height 172.7 cm (5' 7.99 ) 12/13/2018 9:38 AM ED T Body Mass Index 21.02 12/13/2018 9:38 AM EDT Plan of Treatment Health Maintenance Due Date Last Done Comments Adult Td,Tdap Booster 1959 LIPID PANEL 1959 DEPRESSION SCREENING 1971 HEPATITIS C SCREENING 1977 HIV ONE-TIME SCREENING (18-6 5 YEARS) 1977 MAMMOGRAM 1999 COLOGUARD 2004 COLONOSCOPY 2004 COLORECTAL CANCER SCREENING 2004 FIT TEST 2004 FOBT 2004 SIGMOIDOSCOPY 2004 VIRTUAL COLONOSCOPY 2004 PNEUMOCOCCAL VACCINES (50+ years) (1 of 1 - PCV) 2009 ZOSTER VACCINES (1 of 2) 2009 OSTEOPOROSIS SCREENING INITI AL (ONE-TIME) 2024 INFLUENZA VACCINE (#1) 2025 0, 03/24/2019 COVID-19 VACCINE (2 - 2024-2 6 season) 2025 09/10/2020 RSV VACCINE (1 - 1-dose 75+ series) 2034 SMOKING STATUS SCREENING (On ce After 26 Yrs) Completed 12/13/2018 HEPATITIS A VACCINES Aged Out No long er eligible based on patient's age to complete this topic HIB VACCINES Aged Out No longer eligi ble based on patient's age to complete this topic MENINGOCOCCAL VACCINES (ACWY) Aged Out No longer eligible based on patient's age to complete this topic MENINGOCOCCAL VACCINES (B) Aged Out N o longer eligible based on patient's age to complete this topic Medical Devices Not on file Insurance [facility] POS [facility] HMO POS [facility] [place] [address] [place] [address] HMO POS [facility] [place] [address] [place] [address] HMO POS HMO POS [facility] HMO POS HMO POS Care Teams Acid Etch Operator Relationship Specialty Start Date End Date Bernie Quinteros NP [address] [place] [address] PCP - General Geriatric Psychiatry 12/26/17 Additional Source Comments The information contained in this document represents components of the legal health record. It is not the complete legal health record.[facility]
--- OUTSIDE RECORDS SUMMARY | 2025-05-02 15:46 | XMS_ITS | Encounter Summary ---
Author Organization [facility] Address [address] [facility] [address] [place] [address] Phone Care Team Providers Care Casting Director Name Role Phone Bernie Quinteros NP Primary Care Provider [phone] Encounter Details Date Type Department Care Team (Late st Contact Info) Description 06/15/2018 Ancillary Orders [facility] Rheumatology [address] [place] [address] Batool Sethi MD [address] [facility], [address] [place] [address] [email or web address] Arthralgia of multiple sites; Iritis, recurrent, bilateral; Chronic neck pain; ANNA positive; Chest wall pain Social History Tobacco Use Types Packs/Day Years Used Date Smoking Tobacco: Never Smokeless Tobacco: Never Comments Unknown Sex and Gender Information Value Date Recorded Sex Assigned at Not on file Legal Sex Female 2:19 PM EDT Gender Identity Not on file Sexual Orientation Not on file documented as of this encounter Plan of Treatment Not on file documented as of this encounter Results * XR FOOT 3 OR MORE VIEWS (RIGHT) (06/15/2018 2:29 PM EST) Anatomical Region Laterality Modality Foot Right Radiographic Letitia ging 06/15/2018 2:41 PM EST Impressions 06/15/2018 2:42 PM EST Mild diffuse osteopenia with mild spurring in the midfoot and hindfoot region. No erosive arthropathy or subluxation is seen. Prominent calcaneal spurring consistent with plantar fasciitis. S/S: Chronic right foot pain, seronegative spondyloarthropathy POS - [id number] Narrative 06/15/2018 2:42 PM EST COMPARISON: None FINDINGS: 3 views of the right foot are obtained. There is mild diffuse osteopenia evident. Mild degenerative changes are seen in the midfoot and hindfoot region with slight bony spurring. There is prominent plantar calcaneal spurring evident consistent with plantar fasciitis. No erosive change or subluxation is seen. Procedure Note Raúl Frederick MD - 06/15/2018 COMPARISON: None FINDINGS: 3 views of the right foot are obtained. There is mild diffuse osteopenia evident. Mild degenerative changes are seen in the midfoot and hindfoot region withslight bony spurring. There is prominent plantar calcaneal spurring evident consistent withplantar fasciitis. No erosive change or subluxation is seen. IMPRESSION: Mild diffuse osteopenia with mild spurring in the midfoot and hindfootregion. No erosive arthropathy or subluxation is seen. Prominent calcaneal spurring consistent with plantar fasciitis. S/S: Chronic right foot pain, seronegative spondyloarthropathy POS - [id number] Batool Sethi MD IMG XR LOWER EXTREMITY F inal Result * XR FOOT 3 OR MORE VIEWS (LEFT) (06/15/2018 2:29 PM EST) Anatomical Region Laterality Modality Foot Left Radiographic Letitia ging 06/15/2018 2:43 PM EST Impressions 06/15/2018 2:44 PM EST Minor diffuse osteopenia without significant erosive changes or bony displacement evident. Minor plantar calcaneal spurring consistent with plantar fasciitis. S/S: Chronic left foot pain, seronegative spondyloarthropathy POS - [id number] Narrative 06/15/2018 2:44 PM EST COMPARISON: None FINDINGS: 4 views of the left foot are obtained. There is minor osteopenia evident diffusely. Negligible degenerative changes are evident. No erosive arthropathy or subluxation is evident. There is mild plantar calcaneal spurring consistent with mild plantar fasciitis. Procedure Note Raúl Frederick MD - 06/15/2018 COMPARISON: None FINDINGS: 4 views of the left foot are obtained. There is minor osteopenia evident diffusely. Negligible degenerative changes are evident. No erosive arthropathy or subluxation is evident. There is mild plantar calcaneal spurring consistent with mild plantarfasciitis. IMPRESSION: Minor diffuse osteopenia without significant erosive changes or bonydisplacement evident. Minor plantar calcaneal spurring consistent with plantar fasciitis. S/S: Chronic left foot pain, seronegative spondyloarthropathy POS - [id number] Batool Sethi MD IMG XR LOWER EXTREMITY F inal Result documented in this encounter Visit Diagnoses Diagnosis Arthralgia of multiple sites Iritis, recurrent, bilateral Chronic neck pain Cervicalgia ANNA positive Chest wall pain Painful respiration Arthralgia of multiple sites Iritis, recurrent, bilateral Chronic neck pain Cervicalgia ANNA positive Chest wall pain Painful respiration documented in this encounter Care Teams Casting Director Relationship Specialty Start Date End Date Bernie Quinteros TUGGER OPERATOR [address] [place] [id number] PCP - General Geriatric Psychiatry 12/26/17 documented as of this encounter Additional Source Comments The information contained in this document represents components of the legal health record. It is not the complete legal health record.[facility]
== END 2025-05-02 11:17 | disposition home or self-care (01) ==
LOC: HO.RHES 10:38
PROVIDERS: PCP Nurse Practitioner Family; Visit Provider Student in an Organized Health Care Education/Training Program
DX: M45.0 Ankylosing spondylitis of multiple sites in spine (principal); M81.0 Age-related osteoporosis without current pathological fracture; Z51.81 Encounter for therapeutic drug level monitoring; Z79.620 Long term (current) use of immunosuppressive biologic
CPT/HCPCS: 99214; G2211

== ENCOUNTER → 2025-05-02 10:37 | Outpatient (BNVA) | payer MEDICARE, SELFPAY | PROVIDERS: PCP Nurse Practitioner Family; Visit Provider Student in an Organized Health Care Education/Training Program | DX: M45.0 Ankylosing spondylitis of multiple sites in spine (principal); M81.0 Age-related osteoporosis without current pathological fracture; E55.9 Vitamin D deficiency, unspecified; Z51.81 Encounter for therapeutic drug level monitoring; Z79.620 Long term (current) use of immunosuppressive biologic | CPT/HCPCS: 99212 ==